=== PATIENT | male | born 1945 | race Hispanic/Latino ===

== ENCOUNTER 2018-02-28 19:45 | Inpatient (IN) | payer MEDICARE, MEDICAID ==
[2018-02-28] MEDS ORDERED: Nitroglycerin 2% Ointment 1 INCH/1 GM Packet ONE (20:15)
[2018-02-28] MEDS ORDERED: Potassium Chloride 20 MEQ TAB ONE (20:37)
[2018-02-28 21:15] LABS: Troponin I 0.054 ng/mL (< 0.028)
[2018-02-28] MEDS ORDERED: Furosemide 40 MG/4 ML VIAL ONE (21:18)
--- NOTE | 2018-02-28 22:11 | PDOC.FPRHP ---
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 Pain sometimes present at rest but is usually worse with exertion. He has had pain like this in the past, but not to the extent that he did with his prior heart attacks or before he had bypass. Pain is described as stabbing and pressure like pain. Patient is currently asymptomatic. He states that the pain was relieved with nitro patch and aspirin given in the ED. Patient denies diaphoresis, nausea, or shortness of breath associated with the chest pain. He has been fatigued over the course of the last few days. Patient denies orthopnea and PND. He was taken off of aspirin by his PCP recently due to liver cirrhosis. ED Course: Lasix 40 mg IV, Nitro paste 1 inch, NS 500 ml, Kdur 20 meq, ASA 324 mg - Allergies/Adverse Reactions Allergies Allergy/AdvReac Type Severity Reaction Status Date / Time No Known Allergies Allergy Verified 03/01/18 01:03 - Home Medications Medication Instructions Recorded Confirmed Type ALPRAZolam [Xanax] 0.25 mg PO BID 01/15/14 03/01/18 History Furosemide [Lasix] 40 mg PO BID 01/15/14 03/01/18 History Insulin NPH/Reg Insulin Hm 31 unit SC BID-AC 01/15/14 03/01/18 History [HumuLIN 70/30 Vial] Metoprolol Tartrate [Lopressor] 50 mg PO BID 01/15/14 03/01/18 History Simvastatin [Zocor] 20 mg PO HS 01/15/14 03/01/18 History Amlodipine [Norvasc] 10 mg PO DAILY 03/01/18 03/01/18 History Finasteride 5 mg PO DAILY 03/01/18 03/01/18 History Lactulose [Constulose] 10 gm PO DAILY 03/01/18 03/01/18 History Omeprazole 20 mg PO DAILY 03/01/18 03/01/18 History Comments: List above was from 4 years ago, and he is not sure what needs up dating. He knows that he takes about 30 units of insulin BID, htn medication, statin, and lactulose. - History PMHx: CAD s/p stents and bypass in 1995 DM2- insulin dependent for at least 5 years hx of hepatitis C- is currently being treated hx of cirrhosis chronic anemia- he used to need blood and platelet transfusions with last transfusion over 5 years ago previous stroke- 2000 with left sided weakness in isolated muscle groups PSHx: CABG Bilateral Aortofemoral bypass surgery- 2004 Cholecystectomy- 2006 Appendectomy FHx:Positive for alcoholism, anemia, arthritis, diabetes, htn, hld, migraines Social: Former smoker, stopped in 1985 with 50 pk yr hx, stopped drinking in 1991 but was a heavy drinker. previous drug use. - Review of Systems General: reports: fatigue. denies: fever/chills, weight/appetite/sleep changes , night sweats Eyes: denies: eye pain, vision changes ENT: denies: nasal congestion, rhinorrhea Respiratory: reports: exercise intolerance. denies: cough, congestion, shortness of breath Cardiovascular: reports: chest pain, edema. denies: palpitation, paroxysmal nocturnal dyspnea, orthopnea Gastrointestinal: denies: nausea, vomiting, diarrhea, GI bleeding Genitourinary: denies: incontinence, dysuria, discharge Skin: denies: rashes, lesions Musculoskeletal: reports: tenderness. denies: pain - Vital signs BP: 153/64 HR: 60 RR: 14 Tmax: 98.5 Pox: 98% on room air Wt: 127 kg FMR H&P: Results - Labs Result Diagrams: 03/01/18 02:32 03/01/18 02:32 Lab results: B-Natriuretic Peptide 788.5 pg/mL (0-100) H 02/28/18 20:31 WBC: 3.2 HGB 11.7 HCT 35.2 plts 81 NA: 138 K 3.2 CL 108 CO2 21 BUN 17 Cr 1.45 glucose: 150 BNP 1007 Trop 0.054 AST: 94 ALT: 82 alk phos: 142 - EKG Interpretation EKG: Sinus bradycardia with LAD, non specific T wave changes inv V4-6, 1st degree AV block FMR H&P: A/P - Problem List (1) NSTEMI (non-ST elevated myocardial infarction) Current Visit: Yes Status: Acute Code(s): I21.4 - NON-ST ELEVATION (NSTEMI) MYOCARDIAL INFARCTION (2) CHF (congestive heart failure) Current Visit: Yes Status: Acute Code(s): I50.9 - HEART FAILURE, UNSPECIFIED (3) HTN (hypertension) Current Visit: Yes Status: Chronic Code(s): I10 - ESSENTIAL (PRIMARY) HYPERTENSION (4) HLD (hyperlipidemia) Current Visit: Yes Status: Chronic Code(s): E78.5 - HYPERLIPIDEMIA, UNSPECIFIED (5) CAD (coronary artery disease) Current Visit: Yes Status: Chronic Code(s): I25.10 - ATHSCL HEART DISEASE OF [place] CORONARY ARTERY W/O ANG PCTRS (6) Hepatitis C Current Visit: Yes Status: Chronic Code(s): B19.20 - UNSPECIFIED VIRAL HEPATITIS C WITHOUT HEPATIC COMA (7) Cirrhosis of liver Current Visit: Yes Status: Chronic Code(s): K74.60 - UNSPECIFIED CIRRHOSIS OF LIVER - Plan 1. 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 Suspected CHF - New onset lower extremity swelling. No PND, exertional dyspnea, or orthopnea - No prior diagnosis of CHF - Echo pending to confirm diagnosis - BNP 1000 on admission - Given lasix 40 mg IV in ED - Cardiology consult in AM - Cardiomegaly on CXR 3. CAD s/p CABG - Recently taken off of ASA due to cirrhosis - Continue home medications - Control comorbid conditions 4. Cirrhosis of liver - Monitor coags and platelets - Continue home lactulose - No evidence of ascites at this time 5. DM type II - Patient is at least on 25 units bid of insulin. Will start similar regimen here with SSI. - HgA1c and FLP pending 6. Chronic Anemia - Likely secondary to liver disease - Improved from 2014 and no need for transfusion within last 5 years 7. 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 - Will trend and discuss with PCP - Avoid nephrotoxic agents 8. HTN - Continue home medications 9. HLD - Continue home medications 10. Hypokalemia - Replace potassium 11. Elevated LFT's - Likely 2/2 hep C Disposition/LOS: Dispo: Admit to telemetry. Plan for cardiology consult in AM. Anticipate stay of >2 days. FMR H&P: Upper Level - Pertinent history 72 yo male with DM, CAD, s/p CABG, hep C cirrhosis presents with chest pain for three days that was worsening today. He denied NV, sweating or SOB. But it does get worse with exertion and he has felt very fatigued. He has noticed swelling in his legs recently. He denies orthopnea and PND. - Pertinent findings Gen: WD/WN in no acute distress HEENT: NC/AT, PARRIS,EOMI, MMM Resp: CTA, normal work of breathing CV: RRR, normal S1, S2, no murmur ABD: mild distension but still soft, nontender, no fluid wave. Extremities: 2+ pitting edema bilaterally in lower leg, pulses 2+ Psych: calm, normal affect and mood Neuro: strength, sensation normal. DTR 2+ Trop 0.06 0.05 Platlets 81 BNP 1000 - Plan Date/Time: 02/28/182208 IElma, have evaluated this patient and agree with findings/plan as outlined by technical support intern resident. Pertinent changes/additions are listed here. 1.NSTEMI- Patients pain is resolved but his CP and fatigue are cw NSTEMI and he had elevated troponins in a patient with complex cardiac hx. No recent echo or cath. Will trend trops, treat symptoms with nitro and consult cards in AM. Will hold LMW or regular heparin because of low platelets 2.Suspected CHF- will confirm with echo tomorrow 3.Cirrhosis- will monitor coags and platelets. Continue home lactulose 4.DM- patient is at least on 25 units bid of insulin. Will start similar regemin here with SSI. Will get a1 c in the AM 5.Chronic Anemia- likely secondary to liver disease. 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 Will trend and discuss with PCP Attending Addendum - Attending Addendum Date/Time: 03/01/182137 I personally evaluated the patient and discussed the management with Dr. Oneal in the evening of 02/28/18. I agree with the History, Examination, Assessment and Plan documented above with any addition or exceptions noted below.
[2018-02-28] MEDS ORDERED: Acetaminophen 325 MG TAB PO PRN (23:35)
[2018-02-28] MEDS ORDERED: Dextrose 5% in Water 1,000 ML IV PRN (23:40)
[2018-02-28] MEDS ORDERED: Dextrose 50% Abboject 50 ML SYRINGE SLOW IVP PRN (23:40)
[2018-03-01 00:12] LABS: Troponin I 0.056 ng/mL (< 0.028)
[2018-03-01 00:17] LABS: INR-International Normal Ratio 1.2; PTT 33.3 SEC (22.9-36.1); Prothrombin Time 15.1 SEC (12.0-14.7)
[2018-03-01 00:19] LABS: Magnesium 1.7 mg/dL (1.6-2.6); Phosphorus 2.6 mg/dL (2.3-4.7)
[2018-03-01 02:46] LABS: Hemoglobin 11.2 g/dL (14.0-18.0); Mean Corpuscular HGB CONC 33.5 g/dL (32.0-36.0); Mean Corpuscular Hemoglobin 28.6 pg (27.0-31.0); Mean Corpuscular Volume 85.4 fl (80.0-94.0); Mean Platelet Volume 9.7 fL (7.4-10.4); Platelet Count 67 thou/uL (130-400); RBC Distribution Width 13.4 % (11.5-14.5); Red Blood Cell (RBC) Count 3.91 mill/uL (4.70-6.10); White Blood Cell (WBC) Count 2.5 thou/uL (4.8-10.8)
[2018-03-01 03:12] LABS: Troponin I 0.057 ng/mL (< 0.028)
[2018-03-01 03:14] LABS: ALT (SGPT) 70 U/L (8-55); AST (SGOT) 77 U/L (5-34); Albumin 2.7 g/dL (3.4-4.8); Alkaline Phosphatase 141 U/L (40-150); Anion Gap 9 mmol/L (10-20); BUN (Urea Nitrogen) 17 mg/dL (8.4-25.7); Bilirubin, Total 0.5 mg/dL (0.2-1.2); Calc. Creatinine Clearance 56 mL/min (70-130); Carbon Dioxide 24 mmol/L (23-31); Cardiac Risk 3.9 (Less than 4.5); Chloride 109 mmol/L (98-107); Cholesterol 78 mg/dl (< 200 Desired); Estimated GFR-MDRD 47; Globulin 3.7 g/dL (2.4-3.5); Glucose 219 mg/dL (83-110); HDL Cholesterol 20 mg/dL (>60 Neg Risk); LDL Cholesterol, Calculated 29 mg/dL; Potassium 3.2 mmol/L (3.5-5.1); Protein, Total 6.4 g/dL (5.8-8.1); Sodium 139 mmol/L (136-145); Triglycerides 146 mg/dL (Less than 150)
[2018-03-01 03:19] LABS: Eosinophils 9 % (0-10); Lymphocytes 24 % (21-51); MDiff Complete? YES; Monocytes 10 % (0-10); Neutrophil 57 % (42-75); PLT Morphology Comment Appears Decreased
[2018-03-01] MEDS ORDERED: Insulin NPH/Reg Insulin Hm 300 UNITS/3 ML VIAL SC SCH (09:00)
--- NOTE | 2018-03-01 09:17 | PDOC.FM ---
- Subjective Subjective: DEMETRIA overnight, VSS. Denies any recurrence of chest pain. States LE swelling better. - Objective MAR Reviewed: Yes Vital Signs & Weight: Vital Signs (12 hours) Temp Pulse Resp BP Pulse Ox 03/01/18 07:40 97.9 F 65 16 169/76 H 96 03/01/18 04:00 97.8 F 63 18 159/73 H 94 L 03/01/18 00:15 95 03/01/18 00:00 97.4 F L 54 L 17 162/74 H 95 02/28/18 22:50 97.9 F 58 L 14 171/76 H 96 Weight Weight 86.228 kg I&O: 02/28/18 03/01/18 03/02/18 06:59 06:59 06:59 Intake Total 240 Output Total 700 Balance -460 Result Diagrams: 03/02/18 04:06 03/02/18 04:06 Phys Exam - Physical Examination Constitutional: NAD HEENT: PERRLA, moist MMs Respiratory: no wheezing, clear to auscultation bilateral Cardiovascular: RRR, no significant murmur Gastrointestinal: soft, non-tender, positive bowel sounds 1+ to mid khan b/l R>L Neurological: non-focal, moves all 4 limbs Psychiatric: A&O x 3 Skin: cap refill <2 seconds Dx/Plan (1) Unstable angina Status: Acute Plan: 4 day hx of substernal chest pressure worse w/ exertion and lasting longer than 20 minutes s/p resting Last cath back in 1995 Not taking statin 2/2 liver disease which was recently stopped by PCP CP resolved s/p nitro given in ER No evidence of ST-segment elevation on EKG and trop peak at 0.061 which have since downtrended ECHO this AM Cards consulted pending reccomendations. (2) Hypokalemia Code(s): E87.6 - HYPOKALEMIA Status: Acute (3) CHF (congestive heart failure) Code(s): I50.9 - HEART FAILURE, UNSPECIFIED Status: Acute (4) CAD (coronary artery disease) Code(s): I25.10 - ATHSCL HEART DISEASE OF [place] CORONARY ARTERY W/O ANG PCTRS Status: Chronic (5) HLD (hyperlipidemia) Code(s): E78.5 - HYPERLIPIDEMIA, UNSPECIFIED Status: Chronic (6) HTN (hypertension) Code(s): I10 - ESSENTIAL (PRIMARY) HYPERTENSION Status: Chronic (7) Hepatitis C Code(s): B19.20 - UNSPECIFIED VIRAL HEPATITIS C WITHOUT HEPATIC COMA Status: Chronic
--- NOTE | 2018-03-01 10:49 | ULT ---
RIGHT UPPER QUADRANT ULTRASOUND: DATE: Provided Clinical History: Cirrhosis. FINDINGS: The liver demonstrates a coarsened echotexture without evidence of mass or intrahepatic biliary ducta l dilatation. The IVC appears normal. The pancreas is largely obscured. The common duct is not dilate d. The gallbladder is not visualized compatible with provided clinical history of prior cholecystecto my. Right kidney demonstrates no evidence for hydronephrosis or mass. There is free fluid seen about the right hepatic lobe. IMPRESSION: 1. Coarsening of the hepatic echotexture compatible with the provided clinical history of cirrhosis. 2. Small amount of ascites is seen in the right upper quadrant. 3. Right pleural effusion is partially visualized. POS: [facility]
--- NOTE | 2018-03-01 11:52 | PDOC.FM ---
- Subjective Subjective: DEMETRIA overnight, VSS. No return of Chest pain. No new complaints. - Objective MAR Reviewed: Yes Vital Signs & Weight: Vital Signs (12 hours) Temp Pulse Resp BP Pulse Ox 03/01/18 07:40 97.9 F 65 16 169/76 H 96 03/01/18 04:00 97.8 F 63 18 159/73 H 94 L 03/01/18 00:15 95 03/01/18 00:00 97.4 F L 54 L 17 162/74 H 95 Weight Weight 86.228 kg I&O: 02/28/18 03/01/18 03/02/18 06:59 06:59 06:59 Intake Total 240 Output Total 700 Balance -460 Result Diagrams: 03/01/18 02:32 03/01/18 02:32 Phys Exam - Physical Examination Constitutional: NAD HEENT: PERRLA, moist MMs Neck: no nodes, no JVD Respiratory: no wheezing, clear to auscultation bilateral Cardiovascular: RRR, no significant murmur Gastrointestinal: soft, non-tender Musculoskeletal: edema present 1+ to mid khan b/l Neurological: moves all 4 limbs Dx/Plan (1) Unstable angina Status: Acute Plan: 4 day hx of substernal chest pressure worse w/ exertion and lasting longer than 20 minutes s/p resting Last cath back in 1995 Not taking statin 2/2 liver disease which was recently stopped by PCP CP resolved s/p nitro given in ER No evidence of ST-segment elevation on EKG and trop peak at 0.061 which have since downtrended ECHO this AM Cards consulted pending reccomendations. (2) Hypokalemia Code(s): E87.6 - HYPOKALEMIA Status: Acute Plan: Replace w/ PO (3) CHF (congestive heart failure) Code(s): I50.9 - HEART FAILURE, UNSPECIFIED Status: Acute Plan: Awaiting echo results Cards recs pending (4) CAD (coronary artery disease) Code(s): I25.10 - ATHSCL HEART DISEASE OF [place] CORONARY ARTERY W/O ANG PCTRS Status: Chronic Plan: Cont. asa Contraindication for lipitor and beta sarah in setting of active liver disease and possible new onset heart failure (5) HLD (hyperlipidemia) Code(s): E78.5 - HYPERLIPIDEMIA, UNSPECIFIED Status: Chronic Plan: Contraindication for statin 2/2 liver disease (6) HTN (hypertension) Code(s): I10 - ESSENTIAL (PRIMARY) HYPERTENSION Status: Chronic Plan: PRN's available Pending cards recs (7) Hepatitis C Code(s): B19.20 - UNSPECIFIED VIRAL HEPATITIS C WITHOUT HEPATIC COMA Status: Chronic Plan: RUQ U/S Will contact clinic to clarify if this is being treated or not
[2018-03-01] MEDS ORDERED: Potassium Chloride 20 MEQ TAB PO SCH (12:15)
--- NOTE | 2018-03-01 13:00 | ULT ---
BILATERAL LOWER EXTREMITY ARTERIAL DUPLEX EXAM: History: Leg pain, claudication symptoms. FINDINGS: Examination quality was limited as the patient had difficulty holding still. RIGHT: Common femoral artery 122 cm/sec Profunda femoral 55 cm/sec Proximal superficial femoral 95 cm/sec Mid 129 cm/sec Distal 139 cm/sec Popliteal 61 cm/sec Anterior tibial 44 cm/sec Posterior tibial 77 cm/sec Dorsalis pedis 31 cm/sec LEFT: Common femoral artery 195 cm/sec Profunda femoral 164 cm/sec Proximal superficial femoral 134 cm/sec Mid 158 cm/sec Distal 137 cm/sec Popliteal 92 cm/sec Anterior tibial 58 cm/sec Posterior tibial 76 cm/sec Dorsalis pedis 18 cm/sec IMPRESSION: 1. On the right side there is somewhat reduced velocities within the right profunda femoral artery as compared to the common femoral artery. This could indicate stenosis. There is also mildly elevated v elocities along the course of the mid to distal superficial femoral artery and a fairly significant d rop off of velocities at the popliteal artery level suggesting some areas of mild to moderate narrowi ng. 2. On the left side there is elevated velocities within the left common femoral artery suggesting pro ximal stenosis. There is also elevated velocities to the level of the distal superficial femoral nuris ry with a fairly significant drop off at the popliteal artery suggesting stenosis which could be mild to moderate at the level of the adductor canal. POS: [facility]
[2018-03-01] MEDS: hydrALAZINE 20 MG/ML VIAL SLOW IVP PRN (13:01)
--- NOTE | 2018-03-01 15:56 | CON ---
DATE OF CONSULTATION: 03/01/2018 CARDIOLOGY CONSULTATION REASON FOR CONSULTATION: Leg pain, peripheral vascular disease, chest pain, coronary artery disease. HISTORY OF PRESENT ILLNESS: Mr. Minh Prather is a 72-year-old gentleman. He initially was seen and evaluated by Dr. Haskins previously for peripheral vascular disease and had an intervention as melanie l be outlined below. The patient was admitted to the hospital on this occasion for the above listed problem. The patient states that his legs have been hurting off and on, mostly with exertion, but sometimes at rest. In addition to this, he had some chest pain yesterday. He describes it as a pressure sensati on in his chest. The patient states that he is feeling fine, now is pain free. PAST MEDICAL HISTORY: He said he had bypass surgery at [facility] in 1985. He said he had to be taken off aspirin several years ago secondary to gastrointestinal bleeding due to cirrhosis. The patient was also found to be in some degree of congestive heart failure in the emergency room yes terday. MEDICATIONS: At home, there are question delgado in all this, but it is: 1. Tamsulosin. 2. Clopidogrel. 3. Simvastatin. 4. Insulin. 5. Metoprolol. 6. Nexium. 7. Metformin. 8. Alprazolam. 9. Furosemide. ALLERGIES: None known. SOCIAL HISTORY: Former smoker, stopped in 1985; stopped drinking in 1991, previously heavy drinker. REVIEW OF SYSTEMS: Constitutional: No significant weight gain or loss. Vision: No changes. Heari ng: No changes. Pulmonary: No cough or wheezing. Positive for shortness of breath. Cardiac: Pos itive for chest pain. Gastrointestinal: No nausea, vomiting, or diarrhea. Skin: No rashes. Neuro logic: No unilateral weakness or numbness. Psychiatric: No unusual depression or anxiety. Hematol ogic: No unusual bruising. Genitourinary: No burning with urination. PHYSICAL EXAMINATION: GENERAL: This is a 72-year-old gentleman currently resting comfortably. VITAL SIGNS: His blood pressure 169/76, pulse 65 and regular. EYES: Sclerae nonicteric. Mouth: Mucous membranes are moist. NECK: Supple, no lymphadenopathy. LUNGS: Clear, no wheezing, rales or rhonchi. CARDIOVASCULAR: Normal S1, normal S2. There is no murmur, rub or gallop. ABDOMEN: Soft, nontender. EXTREMITIES: No clubbing or cyanosis. There is mild edema. SKIN: Warm and dry. PSYCHIATRIC: Mood and affect normal. NEUROLOGIC: Grossly normal. Femoral pulses are markedly diminished very hard to feel. Popliteal pu lses also difficult to feel, I do feel surprisingly posterior tibial pulses. EKG: Sinus bradycardia, first degree AV block, heart rate 56, no acute changes. PERTINENT LABORATORIES: Potassium is 3.2. Creatinine is 1.47. TSH is 6.1. AST is 77, ALT is 70, a nd LDL cholesterol is 78. Hemoglobin is 11.2; platelet count 67,000, severely depressed; white blood cell count 2.5; 57 neutrophils; 24 lymphocytes. INR is elevated at 1.2. ASSESSMENT: 1. Previous bypass surgery in 1985. 2. Recurrent chest pain. 3. Echocardiogram shows ejection fraction 50% to 55%, posterior wall akinetic inferior lateral wall hypokinetic. 4. History of cirrhosis with increase in INR. 5. Low platelet count, probably related to cirrhosis. 6. Peripheral vascular disease, status post intervention by Dr. Haskins on 06/18/2010, was noted t o have some groin pain after the procedure, but did not have a pseudoaneurysm. He had a hematoma in the right groin. The patient had an atherectomy to 2.0 mm Diamondback crown. Subsequently, he underwent stent implantation at that time, had a 7 x [address] d in the left side. ASSESSMENT: 1. Congestive heart failure. 2. Renal failure, stage 3. 3. Cirrhosis with increased INR. 4. History of gastrointestinal bleeding. 5. Peripheral vascular disease. 6. Low platelet count. 7. Low white blood cell count. PLAN: 1. We will evaluate peripheral vascular status. 2. Recheck blood counts tomorrow. Certainly, he is not a candidate for reoperation. A suboptimal c andidate for percutaneous intervention in view of the low platelet counts. We will reevaluate periph eral status and check the patient tomorrow. Consideration for stress testing will be given if it loo ks like it is suboptimal candidate for intervention.
[2018-03-01] MEDS: Insulin NPH/Reg Insulin Hm 300 UNITS/3 ML VIAL SC SCH (17:46)
[2018-03-01] MEDS: HumaLOG 300 UNITS/3 ML VIAL SC PRN (17:46)
[2018-03-01] MEDS: Furosemide 40 MG TAB PO SCH (20:30)
[2018-03-01] MEDS ORDERED: ALPRAZolam 0.25 MG TAB PO SCH (21:00)
[2018-03-01] MEDS ORDERED: Simvastatin 20 MG TAB PO SCH (21:00)
[2018-03-01] MEDS: Melatonin 3 MG TAB PO PRN (22:29)
[2018-03-02] MEDS: hydrALAZINE 20 MG/ML VIAL SLOW IVP PRN (00:55)
[2018-03-02 05:28] LABS: #Eosinphils 0.2 thou/uL (0.0-0.7); #Lymphocytes 0.9 thou/uL (1.20-3.40); #Monocytes 0.3 thou/uL (0.11-0.59); #Neutrophils 2.1 thou/uL (1.40-6.50); %Basophils 0.3 % (0.0-1.0); %Eosinophils 5.8 % (0.0-10.0); %Lymphocytes 26.8 % (21.0-51.0); %Monocytes 7.9 % (0.0-10.0); %Neutrophils 59.2 % (42.0-75.0); Hemoglobin 12.3 g/dL (14.0-18.0); Mean Corpuscular HGB CONC 33.4 g/dL (32.0-36.0); Mean Corpuscular Hemoglobin 28.6 pg (27.0-31.0); Mean Corpuscular Volume 85.6 fl (80.0-94.0); Mean Platelet Volume 10.5 fL (7.4-10.4); Platelet Count 82 thou/uL (130-400); RBC Distribution Width 13.6 % (11.5-14.5); Red Blood Cell (RBC) Count 4.31 mill/uL (4.70-6.10); White Blood Cell (WBC) Count 3.5 thou/uL (4.8-10.8)
[2018-03-02 05:40] LABS: Anion Gap 10 mmol/L (10-20); BUN (Urea Nitrogen) 16 mg/dL (8.4-25.7); Calc. Creatinine Clearance 61 mL/min (70-130); Calcium 8.9 mg/dL (7.8-10.44); Carbon Dioxide 23 mmol/L (23-31); Chloride 110 mmol/L (98-107); Estimated GFR-MDRD 52; Glucose 93 mg/dL (83-110); Potassium 3.7 mmol/L (3.5-5.1); Sodium 139 mmol/L (136-145)
[2018-03-02] MEDS ORDERED: Carvedilol 3.125 MG TAB PO SCH (08:45)
--- NOTE | 2018-03-02 08:46 | PDOC.FM ---
- Subjective Subjective: DEMETRIA overnight, hypertensive. NSR on tele. No new complaints. Denies any return of chest pain. - Objective Vital Signs & Weight: Vital Signs (12 hours) Temp Pulse Resp BP BP BP Pulse Ox 03/02/18 08:00 98.2 F 70 16 169/77 H 97 03/02/18 04:00 98.9 F 56 L 20 161/74 H 97 03/02/18 00:55 65 180/84 H 03/02/18 00:00 180/84 H Weight Weight 83.779 kg I&O: 03/01/18 03/02/18 03/03/18 06:59 06:59 06:59 Intake Total 240 920 Output Total 700 1725 Balance -460 -805 Result Diagrams: 03/02/18 04:06 03/02/18 04:06 <Pio Giraldo - Last Filed: 03/02/18 08:44> - Objective Vital Signs & Weight: Vital Signs (12 hours) Temp Pulse Resp BP BP BP Pulse Ox 03/02/18 08:00 98.2 F 70 16 169/77 H 97 03/02/18 04:00 98.9 F 56 L 20 161/74 H 97 03/02/18 00:55 65 180/84 H 03/02/18 00:00 180/84 H Weight Weight 83.779 kg I&O: 03/01/18 03/02/18 03/03/18 06:59 06:59 06:59 Intake Total 240 920 Output Total 700 1725 Balance -460 -805 Result Diagrams: 03/02/18 04:06 03/02/18 04:06 <Richard Miranda - Last Filed: 03/02/18 10:09> Phys Exam - Physical Examination Constitutional: NAD HEENT: PERRLA, moist MMs Neck: no nodes Respiratory: no wheezing, clear to auscultation bilateral Cardiovascular: RRR, no significant murmur Gastrointestinal: positive bowel sounds Neurological: moves all 4 limbs Psychiatric: normal affect, A&O x 3 Skin: cap refill <2 seconds <Pio Giraldo - Last Filed: 03/02/18 08:44> Dx/Plan (1) Unstable angina Status: Acute Plan: 4 day hx of substernal chest pressure worse w/ exertion and lasting longer than 20 minutes s/p resting Last cath back in 1995 Pt on low dose statin per PCP records which has been restarted Cont. w/ 81 mg ASA Will start low dose co-reg and SEBAS 2/2 HTN and improved pulse this AM No return of CP No evidence of ST-segment elevation on EKG and trop peak at 0.061 which have since downtrended Cards on board, appreciate recs. No plans for cath 2/2 comorbid medical conditions Cont. w/ medical management (2) CHF (congestive heart failure) Code(s): I50.9 - HEART FAILURE, UNSPECIFIED Status: Acute Plan: Restart low dose statin C/w ASA started low dose co-reg Started on low dose SEBAS (3) CAD (coronary artery disease) Code(s): I25.10 - ATHSCL HEART DISEASE OF [place] CORONARY ARTERY W/O ANG PCTRS Status: Chronic Plan: Cont. asa, statin Will start low dose co-reg today w/ continued resolution of chest pain Started on low dose SEBAS. GFR >30 not requiring dose adjustment (4) HLD (hyperlipidemia) Code(s): E78.5 - HYPERLIPIDEMIA, UNSPECIFIED Status: Chronic Plan: Contraindication for statin 2/2 liver disease (5) HTN (hypertension) Code(s): I10 - ESSENTIAL (PRIMARY) HYPERTENSION Status: Chronic Plan: PRN's available Started on low dose co-reg and SEBAS this AM (6) Hepatitis C Code(s): B19.20 - UNSPECIFIED VIRAL HEPATITIS C WITHOUT HEPATIC COMA Status: Chronic Plan: RUQ U/S showing cirrhosis <Pio Giraldo - Last Filed: 03/02/18 08:44> Attending Addendum - Attending Addendum Date/Time: 03/02/18 1006 I personally evaluated the patient and discussed the management with Dr. Giraldo I agree with the History, Examination, Assessment and Plan documented above with any addition or exceptions noted below. Patient's angina has stabilized. Due to his comorbidities we will not pursue catheterization, per Cardiology recommendations. Optimize medical management with possible discharge today. <Richard Miranda - Last Filed: 03/02/18 10:09>
[2018-03-02] MEDS ORDERED: Lisinopril 10 MG TAB PO SCH (09:00)
--- NOTE | 2018-03-02 09:51 | PRG ---
DATE OF SERVICE: 03/02/2018 SUBJECTIVE: Mr. Prather is doing okay, not having chest pain today. No pressure. PHYSICAL EXAMINATION: VITAL SIGNS: Blood pressure is high 169/77, pulse 70. LUNGS: Clear. CARDIAC: Normal S1, normal S2. Feeling his pulses, I feel a better femoral pulse today. The peripheral studies indicate that his va scular disease is probably distal. 1. Peripheral vascular disease. 2. Coronary artery disease with bypass in the 1980s x1 only. 3. Status post non-ST elevation infarction. 4. Cirrhosis. 5. History of gastrointestinal bleeding, had to be taken off aspirin and Plavix in the past apparent ly, but he is back on aspirin. PLAN: Discussed cardiac catheterization, that would be my recommendation to go ahead and proceed. D iscussed the risks, discussed increased bleeding risk in case he needs a stent and due to the dual an tiplatelet drugs. The patient declines catheterization at this point. If he changes his mind, we co uld proceed to catheterization. Otherwise, we will add nitrates and probably let him go home tomorro fariha
[2018-03-02] MEDS: Amlodipine 10 MG TAB PO SCH (10:19)
[2018-03-02] MEDS: Finasteride 5 MG TAB PO SCH (10:21)
[2018-03-02] MEDS: Furosemide 40 MG TAB PO SCH ×2 (10:21→20:36)
[2018-03-02] MEDS: Insulin NPH/Reg Insulin Hm 300 UNITS/3 ML VIAL SC SCH ×2 (10:22→18:25)
[2018-03-02] MEDS: Melatonin 3 MG TAB PO PRN (21:35)
[2018-03-03 05:22] VITALS: BMI 30.2
[2018-03-03] MEDS ORDERED: Lisinopril 20 MG TAB PO SCH (06:28)
[2018-03-03] MEDS: Insulin NPH/Reg Insulin Hm 300 UNITS/3 ML VIAL SC SCH (08:26)
[2018-03-03] MEDS: Furosemide 40 MG TAB PO SCH (08:28)
[2018-03-03] MEDS: Finasteride 5 MG TAB PO SCH (08:28)
[2018-03-03] MEDS: Amlodipine 10 MG TAB PO SCH (08:28)
--- NOTE | 2018-03-03 08:55 | PDOC.FM ---
- Subjective Subjective: DEMETRIA overnight, VSS. NSR on telemetry. No return of chest pain. No new complaints this AM. Pt reports ambulating w/o issue yesterday around floor. - Objective MAR Reviewed: Yes Vital Signs & Weight: Vital Signs (12 hours) Temp Pulse Resp BP BP Pulse Ox 03/03/18 08:28 67 03/03/18 07:45 98.8 F 67 17 158/74 H 96 03/03/18 04:35 99.2 F 69 18 157/76 H 96 03/03/18 04:22 99.2 F 69 18 157/76 H 96 03/03/18 00:27 98.2 F 61 16 156/70 H 97 Weight Weight 85.003 kg I&O: 03/02/18 03/03/18 03/04/18 06:59 06:59 06:59 Intake Total 920 1200 Output Total 1725 650 Balance -805 550 Result Diagrams: 03/02/18 04:06 03/02/18 04:06 <Pio Giraldo - Last Filed: 03/03/18 08:53> - Objective Vital Signs & Weight: Vital Signs (12 hours) Temp Pulse Resp BP BP Pulse Ox 03/03/18 08:28 67 03/03/18 08:00 98.8 F 67 18 96 03/03/18 07:45 98.8 F 67 17 158/74 H 96 03/03/18 04:35 99.2 F 69 18 157/76 H 96 03/03/18 04:22 99.2 F 69 18 157/76 H 96 03/03/18 00:27 98.2 F 61 16 156/70 H 97 Weight Weight 85.003 kg I&O: 03/02/18 03/03/18 03/04/18 06:59 06:59 06:59 Intake Total 920 1200 Output Total 1725 650 Balance -805 550 Result Diagrams: 03/02/18 04:06 03/02/18 04:06 <Richard Miranda - Last Filed: 03/03/18 10:37> Phys Exam - Physical Examination Constitutional: NAD HEENT: PERRLA, moist MMs Respiratory: no wheezing, clear to auscultation bilateral Cardiovascular: RRR, no significant murmur Gastrointestinal: soft, non-tender, positive bowel sounds Musculoskeletal: no edema Neurological: non-focal, moves all 4 limbs Psychiatric: normal affect, A&O x 3 Skin: cap refill <2 seconds <Pio Giraldo - Last Filed: 03/03/18 08:53> Dx/Plan (1) Unstable angina Status: Acute Plan: 4 day hx of substernal chest pressure worse w/ exertion and lasting longer than 20 minutes s/p resting. CP has resolved. Last cath back in 1995 trop peak at 0.061 which have since downtrended Pt on low dose statin per PCP records which has been restarted Cont. w/ 81 mg ASA Pt tolerated co-reg and SEBAS started yesterday w/ HTN improved and stable pulse this AM Increased dose of SEBAS this AM for improved control of BP Cards on board, appreciate recs. No plans for cath 2/2 comorbid medical conditions Cont. w/ medical management Plan for d/c home today w/ outpatient follow-up (2) CHF (congestive heart failure) Code(s): I50.9 - HEART FAILURE, UNSPECIFIED Status: Acute Plan: C/w statin C/w ASA c/w co-reg c/w sebas-i Pt to follow-up w/ PCP and cards s/p discharge (3) CAD (coronary artery disease) Code(s): I25.10 - ATHSCL HEART DISEASE OF [place] CORONARY ARTERY W/O ANG PCTRS Status: Chronic Plan: Cont. asa, statin cont. co-reg today c/w SEBAS (4) HLD (hyperlipidemia) Code(s): E78.5 - HYPERLIPIDEMIA, UNSPECIFIED Status: Chronic Plan: c/w low dose statin in the setting of liver disease (5) HTN (hypertension) Code(s): I10 - ESSENTIAL (PRIMARY) HYPERTENSION Status: Chronic Plan: PRN's available c/w co-reg as pt was able to tolerate this Increased SEBAS-I this AM for improved control (6) Hepatitis C Code(s): B19.20 - UNSPECIFIED VIRAL HEPATITIS C WITHOUT HEPATIC COMA Status: Chronic Plan: RUQ U/S showing cirrhosis outpatient follow-up <Pio Giraldo - Last Filed: 03/03/18 08:53> Attending Addendum - Attending Addendum Date/Time: 03/03/18 1022 I personally evaluated the patient and discussed the management with Dr. Giraldo I agree with the History, Examination, Assessment and Plan documented above with any addition or exceptions noted below. Patient tolerating Imdur, Lisinopril, and Coreg with improving blood pressures. Medical management has been optimized and he can likely be discharged home today. <Richard Miranda - Last Filed: 03/03/18 10:37>
[2018-03-03 11:22] VITALS: BP 116/62; TEMP 98.4
[2018-03-03] MEDS ORDERED: Carvedilol 3.125 MG TAB PO SCH (12:00)
[2018-03-03] MEDS: HumaLOG 300 UNITS/3 ML VIAL SC PRN (12:17)
--- NOTE | 2018-03-04 01:33 | DIS-2 ---
DATE OF ADMISSION: 02/28/2018 DATE OF DISCHARGE: 03/03/2018 ADMITTING ATTENDING: Dr. Dobbs. DISCHARGE ATTENDING: Dr. Miranda. RESIDENT: Dr. Pio Giraldo. CONSULTATIONS: Cardiology, Dr. Lopez. PROCEDURES: None. Echocardiogram showing EF of 50-55% with moderate mitral regurgitation and PA systolic pressure of 46 mmHg, moderately severely elevated and posterior wall akinesis and inferior wall and lateral wall hy pokinesis and severe left atrial dilatation. PRIMARY DIAGNOSES: 1. Unstable angina. 2. Congestive heart failure exacerbation. SECONDARY DIAGNOSES: 1. Coronary artery disease status post coronary artery bypass graft. 2. Liver cirrhosis. 3. Type 2 diabetes mellitus. 4. History of hepatitis C. 5. Chronic anemia. 6. Chronic kidney disease. 7. Hypertension. 8. Hyperlipidemia. DISCHARGE MEDICATIONS: 1. Aspirin 81 mg p.o. daily. 2. Imdur 60 mg p.o. daily. 3. Coreg 3.125 mg p.o. b.i.d. 4. Lisinopril 10 mg p.o. daily. 5. Lasix 40 mg p.o. b.i.d. 6. Xanax 0.25 mg p.o. b.i.d. 7. Humulin 70/30 31 units subcutaneous b.i.d. 8. Zocor 20 mg p.o. at bedtime. 9. Omeprazole 20 mg p.o. daily. 10. Finasteride 5 mg p.o. daily. 11. Norvasc 10 mg p.o. daily. 12. Lactulose 10 mg p.o. daily. DISCONTINUED MEDICATIONS: Lopressor 50 mg p.o. b.i.d. HISTORY OF PRESENT ILLNESS AND HOSPITAL COURSE: The patient is a 72-year-old male with past medical history of coronary disease, status post CABG, liver cirrhosis secondary to hepatitis C and hypertens ion who presented initially with 3-day history of worsening lower extremities and chest pain that was intermittent in nature. The patient also endorsing lower extremity swelling as well during this mary e frame. The patient states he has had similar pain in the past, but nothing to that extent. The pa tient described as stabbing and pressure-like. However, pain had resolved at time of initial evaluat ion. Initial EKG showed sinus bradycardia with nonspecific T-wave changes in the lateral leads in V4 through V6 with first degree AV block and this remained stable throughout entire hospitalization and continue telemetry. The patient had initial BNP of 1007. Initial troponin was 0.0454, which down t rended on subsequent checks. The patient was given 40 mg IV Lasix in the ER, which significantly imp roved his lower extremity swelling. He was admitted to telemetry and Cardiology was consulted for fu rther evaluation. Dr. Lopez, Cardiology evaluated the patient and secondary to his significant risk factors, did not feel he was a good candidate for cardiac catheterization. As he was not a candidat e for reoperation with history of coronary disease. The patient did also have low platelet counts th at were down to 67,000, which was around the patient's baseline from prior hospitalizations. The pat ient did have some elevated blood pressures on examination up to 180 systolic. He was started on med ical management with beta sarah, SEBAS inhibitor, and statin during his hospitalization. The patient reported that he had just been decreased to a low intensity statin with Zocor, which we continued. The patient's blood pressure responded well to the medication changes and with continued resolution o f his chest pain. He was discharged home with followup and with Cardiology outpatient setting. DISPOSITION: Stable. LOCATION: Home. FOLLOWUP: 1. Follow with Dr. Donato on 03/09/2018 at 4:00 p.m. 2. Follow with Dr. Carlyn Lopez in 2-3 weeks. 3. Activity: Cardiopulmonary limits. DIET: Heart healthy, diabetic and renal with 1500 mL fluid restriction.
== END 2018-03-03 14:28 | disposition home or self-care (01) | DRG 281 ==
LOC: ERS 19:45 → 2NO 20:34
PROVIDERS: ADMIT Family Medicine; ATTEND Family Medicine
DX: Z79.4 Long term (current) use of insulin; I73.9 Peripheral vascular disease, unspecified; I44.30 Unspecified atrioventricular block; I50.9 Heart failure, unspecified; E78.5 Hyperlipidemia, unspecified; Z79.82 Long term (current) use of aspirin; R00.1 Bradycardia, unspecified; N18.3 Chronic kidney disease, stage 3 (moderate); Z95.1 Presence of aortocoronary bypass graft; I13.0 Hypertensive heart and chronic kidney disease with heart failure and stage 1 through stage 4 chronic kidney disease, or unspecified chronic kidney disease; K74.60 Unspecified cirrhosis of liver; I34.0 Nonrheumatic mitral (valve) insufficiency; B18.2 Chronic viral hepatitis C; E11.22 Type 2 diabetes mellitus with diabetic chronic kidney disease; D64.9 Anemia, unspecified; Z87.891 Personal history of nicotine dependence; I21.A1 Myocardial infarction type 2; E87.6 Hypokalemia; I25.110 Atherosclerotic heart disease of native coronary artery with unstable angina pectoris
CPT/HCPCS: 36415; 36416; 76705; 80048; 80053; 80061; 83735; 83880; 84100; 84439; 84443; 84484; 85007; 85025; 85027; 85610; 85730; 93005; 93306; 93798; 93923; 96361; 96374; A4216; G8978-GP-CH; G8979-GP-CH; G8980-GP-CH; G8987-GO-CI; G8988-GO-CI; G8989-GO-CI; J0360; J1940

== ENCOUNTER 2018-08-04 14:30 | Inpatient (IN) | payer MEDICARE, MEDICAID ==
[2018-08-04] MEDS ORDERED: Furosemide 40 MG/4 ML VIAL ONE (15:40)
[2018-08-04 17:19] LABS: Troponin I 0.786 ng/mL (< 0.028)
[2018-08-04] MEDS ORDERED: Dextrose 50% Abboject 50 ML SYRINGE SLOW IVP PRN (18:18)
[2018-08-04] MEDS ORDERED: Nitroglycerin 0.4 MG TAB (25 Tab Bottle) SL PRN (18:18)
[2018-08-04] MEDS ORDERED: Dextrose 5% in Water 1,000 ML IV PRN (18:18)
[2018-08-04] MEDS ORDERED: Ondansetron ODT 4 MG TAB PO PRN (18:18)
[2018-08-04] MEDS ORDERED: Enoxaparin Sodium 40 MG/0.4 ML SYRINGE SC SCH (18:18)
[2018-08-04 18:21] VITALS: BMI 28.6
[2018-08-04] MEDS ORDERED: Heparin 25,000 units/D5W 500 ML IVPB SCH (19:15)
--- NOTE | 2018-08-04 19:34 | PDOC.FPRHP ---
- History of Present Illness Chief Complaint: Shortness of breath, Chest pain History of Present Illness: 72 year old male with history of CAD s/p CABG 1985, Hx of stent 2006, DM type II , HTN that presents with chest pain and shortness of breath. Patient states he has a one day history of chest pain, located in the center of the chest. It is described as dull and with no radiation. The chest pain is constant and associated with shortness of breath. Patient states this current episode of chest pain actually started with shortness of breath. He is exceptionally short of breath on exertion. He endorses palpitations. The chest pain started at around 14:00 today and was relieved by nitro, ASA, and lasix. He was transferred from [facility] for CHF exacerbation and workup of chest pain. 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 At that time, he was seen by Dr. Lopez. He had an echo done at that time which showed EF 50-55% with posterior wall akinesis, inferior wall and lateral wall hypokineses, and PA systolic pressure of [address] Lopez commented that patient would likely need cardiac catheterization, but patient declined at the time. Nitrates were added to assist with chest pain. Patient does have a history of GI bleeding, so he was taken off of ASA and plavix in the past, but was restarted during last hospitalization. Patient does endorse a history of smoking but quit in 2001. Of note, patient is requiring O2 in ED. He is satting mid 90's on 2L. He does not require O2 at home. ED Course: Patient given 40 mg of IV lasix in [facility]. He was transferred to [facility] from [facility] and had received ASA, Lasix, and Nitro. - Allergies/Adverse Reactions Allergies Allergy/AdvReac Type Severity Reaction Status Date / Time No Known Allergies Allergy Verified 07/26/18 12:36 - Home Medications Medication Instructions Recorded Confirmed Type ALPRAZolam [Xanax] 0.25 mg PO BID 01/15/14 08/05/18 History Furosemide [Lasix] 40 mg PO BID 01/15/14 08/05/18 History Insulin NPH/Reg Insulin Hm 28 unit SC BID-AC 01/15/14 08/05/18 History [HumuLIN 70/30 Vial] Simvastatin [Zocor] 20 mg PO HS 01/15/14 08/05/18 History Amlodipine [Norvasc] 10 mg PO DAILY 03/01/18 08/05/18 History Finasteride 5 mg PO DAILY 03/01/18 08/05/18 History Lactulose [Constulose] 10 gm PO DAILY 03/01/18 03/01/18 History Omeprazole 20 mg PO DAILY 03/01/18 08/05/18 History Aspirin [Aspirin Chewable Tablet] 81 mg PO DAILY tab 03/03/18 08/05/18 Rx Carvedilol [Coreg] 3.125 mg PO BID #60 tab 03/03/18 08/05/18 Rx Isosorbide Mononitrate [Imdur] 60 mg PO DAILY #30 tab 03/03/18 Rx Lisinopril 10 mg PO DAILY #30 tablet 03/03/18 08/05/18 Rx - History PMHx: HFpEF, CAD s/p CABG 1985 and stent 2006, DM type II, HTN, Cirrhosis, GERD , Hepatitis C, HLD, CVA with residual left sided weakness PSHx: CABG 1985, Stent 2006, Cholecystectomy, Appendectomy FHx: Mom and dad with history of [place], DM type II. Brother with CHF. Social: Endorses past history of tobacco abuse. Quit in 's per patient. Smoke for 20-30 years. Patient endorses history of drug use to include cocaine, heroin , and marijuana. Endorses significant EtOH abuse in the past. He states that he quit drinking in 2001 but prior to that drank 24 pack per day. - Review of Systems General: denies: fever/chills, weight/appetite/sleep changes Eyes: reports: vision changes (due to cataracts. recent repair of left eye. due for repair of right eye tomorrow) ENT: denies: nasal congestion Respiratory: reports: cough (prior to shortness of breath and chest pain), shortness of breath, exercise intolerance. denies: congestion Cardiovascular: reports: chest pain, palpitation, edema, paroxysmal nocturnal dyspnea, orthopnea Gastrointestinal: reports: constipation, GI bleeding (hx of GI bleed in past). denies: nausea, vomiting, diarrhea, abdominal pain Genitourinary: denies: incontinence, polyuria Skin: denies: rashes, lesions Musculoskeletal: denies: pain, tenderness, arthritis/arthralgias Neurological: denies: numbness, syncope, seizure, weakness Psychological: denies: anxiety, depression - Vital signs BP: 159/80 HR: 37 RR: 26 Tmax: 97.9 F Pox: 94% on 2L Wt: 82 kg - Physical Exam Constitutional: awake, alert and oriented, well developed -Constitutional: Working to breath, but conversating without much difficulty HEENT: PERRLA, EOMI Neck: supple Chest: no-tender to palpation -Heart: Irregular rhythm, bradycardia -Lungs: Wheezing present throughout, no rales or rhonchi noted Abdomen: soft, non-tender, bowel sounds present -Abdomen: Mildly distended Skin: no rash/lesions, capillary refill <2 seconds Heme/Lymphatic: no unusual bruising or bleeding Psychiatric: normal mood and affect, good judgment and insight, intact recent and remote memory FMR H&P: Results - Labs Result Diagrams: 08/05/18 01:03 08/05/18 01:03 - EKG Interpretation EKG: Irregular sinus rhythm. P waves noted on EKG. NJ interval seems to vary. Bradycardia in the 40's. - Radiology Interpretation Chest x-ray Status: image reviewed by me, report reviewed by me Additional comment: No evidence of acute cardiopulmonary process. FMR H&P: A/P - Problem List (1) NSTEMI (non-ST elevated myocardial infarction) Current Visit: No Status: Acute Code(s): I21.4 - NON-ST ELEVATION (NSTEMI) MYOCARDIAL INFARCTION (2) Acute on chronic diastolic CHF (congestive heart failure) Current Visit: Yes Status: Acute Code(s): I50.33 - ACUTE ON CHRONIC DIASTOLIC (CONGESTIVE) HEART FAILURE (3) Cirrhosis of liver Current Visit: No Status: Chronic Code(s): K74.60 - UNSPECIFIED CIRRHOSIS OF LIVER (4) HLD (hyperlipidemia) Current Visit: Yes Status: Chronic Code(s): E78.5 - HYPERLIPIDEMIA, UNSPECIFIED (5) HTN (hypertension) Current Visit: Yes Status: Chronic Code(s): I10 - ESSENTIAL (PRIMARY) HYPERTENSION (6) Hepatitis C Current Visit: No Status: Chronic Code(s): B19.20 - UNSPECIFIED VIRAL HEPATITIS C WITHOUT HEPATIC COMA (7) Acute bronchitis Current Visit: Yes Status: Acute Code(s): J20.9 - ACUTE BRONCHITIS, UNSPECIFIED - Plan 72 year old male with history of CAD s/p CABG 1985, stent in 2006, HTN, DM type II that presents with shortness of breath and chest pain. 1. NSTEMI - Troponin 0.474 --> 0.786 --> 0.998 (highest previously 0.061) - Trend Troponin - Patient currently without chest pain, but short of breath - Dr. Kuhn called regarding NSTEMI. Suggested that if patient not actively having chest pain to make NPO after midnight and to call Dr. Lopez in AM since he saw him during last hospitalization. - Patient seen 02/2018; He had an echo done at that time which showed EF 50-55% with posterior wall akinesis, inferior wall and lateral wall hypokineses, and PA systolic pressure of [address] Lopez suggested cardiac catheterization at the time, but patient declined. Patient agreeable to cardiac catheterization during this hospitalization. - Risk stratification labs performed during last hospitalization; HgA1c 6.1 in . TSH elevated at 6 during last hospitalization. FLP performed during last hospitalization. - Cardiology consulted: appreciate recs. Call Dr. Lopez in AM. He saw patient during last hospitalization. Will likely go for cath - NPO - Heparin gtt (therapeutic) - ASA, Nitro PRN - Continue home medications 2. Acute on chronic HFpEF - Echo 02/2018 showed above findings - Lasix BID IV - Repeat echo - Strict I&Os - Daily weight - Fluid restriction 1500 mL Acute hypoxic respiratory failure - Does not require O2 at baseline - 2L O2 requirement to maintain sats in mid 90's - Likely 2/2 HF exacerbation - Repeat echo - See plan as above - O2 to maintain sats >92% - D-dimer 0.40 3. Pulmonary HTN - PA systolic pressure 46 mmHg - Repeat echo - No history of COPD 4. HTN - Continue home medications - PRN for SBP >180 5. DM type II - Continue home medications - Mild SSI - ACHS accuchecks - HgA1c 6.1 in 04/2018 6. HLD - Continue home medications 7. Cirrhosis - Likely 2/2 alcohol abuse - LFTs elevated; continue to trend - Moderately distended abdomen; no history of needing paracentesis in the past 8. Thrombocytopenia - Likely 2/2 cirrhosis - platelets 105 (higher than normal); continue to trend 9. TERRENCE on CKD - BUN 37 with Cr 1.72, GFR 39. Baseline low 50's - Will likely improve with diuresis - Continue to monitor 10. CAD s/p CABG 1985 - Stent 2006 - See plan as above - Continue home medications 11. Acute bronchitis - Start duoneb treatments - Steroids qd - Monitor O2 DVT PPX: Heparin gtt GI PPX: Protonix Dispo: Stable, but guarded prognosis. Cardiology consulted. CE's continue to trend upwards, but patient without chest pain. Started on heparin drip. Possible cath in AM . FMR H&P: Upper Level - Plan Date/Time: 08/04/181925 I, [], have evaluated this patient and agree with findings/plan as outlined by management intern resident. Pertinent changes/additions are listed here. Attending Addendum - Attending Addendum Date/Time: 08/05/18 4322 I personally evaluated the patient and discussed the management with Dr. Guajardo on 08/04/2018. I agree with the History, Examination, Assessment and Plan documented above with any addition or exceptions noted below- Briefly this is a 89 yo male with h/o DM, HTN, CAD s/p CABG and stents, cirrhosis who presented with increasing SOB for the last 2 days. Has had some associated chest pain with the SOB. Denies any diaphoresis. (+) orthopnea. PMH/PSH/Meds/All reviewed and agree with resident's documentation. Afebrile VSS Exam repeated by me and agree with resident's findings. Labs: H/H=11.4/36.0, Tck=760, Fc=532, K=3.9, Qn=056, CO2=17 , BUN/Cr= 37/1.72, Gluc= 141, AST/TJZ=012/160, DKS=4489, Trop I=0.474. EKG- NSR , no ST changes. A/P: 1) CHF exacerbation- admit to tele for diuresis; follow cardiac enzymes. Will consult cardiology for further assistance. 2) DM- monitor accuchecks; continue home meds, 3) Transaminitis- pssibly secondary to hepatic congestion versus cirrhosis or combination- continue to monitor.
[2018-08-04 19:43] LABS: Hemoglobin 12.6 g/dL (14.0-18.0); Platelet Count 113 thou/uL (130-400)
[2018-08-04 19:59] LABS: CKMB 10.5 ng/mL (0-6.6); Troponin I 0.998 ng/mL (< 0.028)
[2018-08-04] MEDS: Heparin 10,000 UNITS/ 10 ML VIAL SLOW IVP SCH (20:41)
[2018-08-04] MEDS ORDERED: hydrALAZINE 20 MG/ML VIAL SLOW IVP PRN (20:41)
--- NOTE | 2018-08-04 21:43 | PDOC.EVN ---
Event Note - Event Note Event Note: Evaluated patient with Dr. Godinez. He was breathing about 25-30 times perminute. Expiratory wheeze noted with cough. No rales notes at bases, diminished airflow at bases. O2 sats on A were low 80s. With neb treatment improved to mid 90s. Will transfer to [facility] for BPAP theapy, sart steroids, give oxygen, and nebs. Main problems are nstemi, CHF, and acute bronchitis.
[2018-08-04 22:42] LABS: CKMB 7.9 ng/mL (0-6.6); Troponin I 1.086 ng/mL (< 0.028)
[2018-08-05 01:24] LABS: Troponin I 1.439 ng/mL (< 0.028)
[2018-08-05 01:37] LABS: #Monocytes 0.3 thou/uL (0.11-0.59); #Neutrophils 4.5 thou/uL (1.40-6.50); %Basophils 0.5 % (0.0-1.0); %Eosinophils 0.8 % (0.0-10.0); %Lymphocytes 17.6 % (21.0-51.0); %Monocytes 5.2 % (0.0-10.0); Hemoglobin 11.5 g/dL (14.0-18.0); Mean Corpuscular HGB CONC 33.2 g/dL (32.0-36.0); Mean Corpuscular Hemoglobin 27.1 pg (27.0-31.0); Mean Corpuscular Volume 81.5 fL (78.0-98.0); Mean Platelet Volume 11.1 fL (7.4-10.4); Platelet Count 91 thou/uL (130-400); RBC Distribution Width 14.4 % (11.5-14.5); Red Blood Cell (RBC) Count 4.24 mill/uL (4.70-6.10)
[2018-08-05 01:56] LABS: ALT (SGPT) 146 U/L (8-55); AST (SGOT) 138 U/L (5-34); Albumin 2.9 g/dL (3.4-4.8); Alkaline Phosphatase 133 U/L (40-150); Anion Gap 14 mmol/L (10-20); BUN (Urea Nitrogen) 36 mg/dL (8.4-25.7); Bilirubin, Total 0.9 mg/dL (0.2-1.2); Calc. Creatinine Clearance 44 mL/min (70-130); Calcium 8.4 mg/dL (7.8-10.44); Carbon Dioxide 18 mmol/L (23-31); Chloride 109 mmol/L (98-107); Estimated GFR-MDRD 40; Globulin 4.3 g/dL (2.4-3.5); Glucose 153 mg/dL (83-110); Potassium 3.7 mmol/L (3.5-5.1); Protein, Total 7.2 g/dL (5.8-8.1); Sodium 137 mmol/L (136-145)
[2018-08-05 02:49] LABS: Amphetamine Not Detected (NotDetected); Barbiturates Screen Not Detected (NotDetected); Benzodiazepine Screen Detected (NotDetected); Cocaine Metabolite Screen Not Detected (NotDetected); Medtox Control Line Valid? VALID (VALID); Medtox Reader # READER 4; Methadone Not Detected (NotDetected); Methamphetamine Not Detected (NotDetected); Opiate Screen Not Detected (NotDetected); Oxycodone Screen Not Detected (NotDetected); Phencyclidine (PCP) Not Detected (NotDetected); THC/Cannabinoid Screen Not Detected (NotDetected); Tricyclic Screen Not Detected (NotDetected)
[2018-08-05 05:02] LABS: Critical Call Chem Troponin I RESULT DECREASING; Troponin I 1.231 ng/mL (< 0.028)
[2018-08-05] MEDS: Furosemide 40 MG/4 ML VIAL SLOW IVP SCH ×2 (05:27→13:36)
[2018-08-05] MEDS: Heparin 10,000 UNITS/ 10 ML VIAL SLOW IVP SCH (05:27)
--- NOTE | 2018-08-05 05:40 | PDOC.EVN ---
Event Note - Event Note Event Note: Mr. Prather has improved since transfer to [facility]. RR is now 18-20. O2 sats in the 90s on NC. NIPPV did not need to be started. Neb and steroids have been helpful. Nurse notes patient reports that pharmacy record show he is taking xanax twice day. We will address his anxiety.
--- NOTE | 2018-08-05 06:06 | PDOC.FM ---
- Subjective Subjective: Patient denies CP or SOB this morning. Reports he is hungry and feeling restless. He requests more of his home anxiety medication. - Objective MAR Reviewed: Yes Vital Signs & Weight: Vital Signs (12 hours) Temp Pulse Resp BP Pulse Ox 08/05/18 04:00 98.5 F 69 22 H 140/46 L 94 L 08/05/18 03:01 70 18 94 L 08/05/18 00:33 70 18 96 08/05/18 00:00 99.8 F H 69 18 146/58 H 95 08/04/18 22:20 98.1 F 73 24 H 162/68 H 94 L 08/04/18 21:08 73 32 H 08/04/18 18:18 96 Weight Weight 84.5 kg I&O: 08/03/18 08/04/18 08/05/18 06:59 06:59 06:59 Intake Total 360 Output Total 375 Balance -15 Result Diagrams: 08/05/18 01:03 08/05/18 01:03 <Dalia Denny - Last Filed: 08/05/18 12:12> - Objective Vital Signs & Weight: Vital Signs (12 hours) Temp Pulse Resp BP BP Pulse Ox 08/05/18 11:13 97.7 F 80 16 143/48 H 98 08/05/18 10:31 77 143/48 H 08/05/18 10:13 74 16 97 08/05/18 07:29 98.3 F 80 18 133/43 L 97 08/05/18 06:42 96 08/05/18 06:41 82 16 95 08/05/18 04:00 98.5 F 69 22 H 140/46 L 94 L 08/05/18 03:01 70 18 94 L Weight Weight 84.5 kg I&O: 08/04/18 08/05/18 08/06/18 06:59 06:59 06:59 Intake Total 360 Output Total 375 Balance -15 Result Diagrams: 08/05/18 01:03 08/05/18 01:03 <Nalini Herzog - Last Filed: 08/05/18 13:06> Phys Exam - Physical Examination Constitutional: NAD HEENT: moist MMs crackles in lower lobes, expiratory wheeze Cardiovascular: RRR, no significant murmur Gastrointestinal: soft, non-tender, no distention, positive bowel sounds Neurological: non-focal, moves all 4 limbs Psychiatric: normal affect Skin: cap refill <2 seconds <Dalia Denny - Last Filed: 08/05/18 12:12> Dx/Plan (1) Acute bronchitis Code(s): J20.9 - ACUTE BRONCHITIS, UNSPECIFIED Status: Acute (2) Acute on chronic diastolic CHF (congestive heart failure) Code(s): I50.33 - ACUTE ON CHRONIC DIASTOLIC (CONGESTIVE) HEART FAILURE Status : Acute (3) Anxiety Code(s): F41.9 - ANXIETY DISORDER, UNSPECIFIED Status: Acute (4) CAD (coronary artery disease) Code(s): I25.10 - ATHSCL HEART DISEASE OF [place] CORONARY ARTERY W/O ANG PCTRS Status: Chronic (5) HLD (hyperlipidemia) Code(s): E78.5 - HYPERLIPIDEMIA, UNSPECIFIED Status: Chronic (6) HTN (hypertension) Code(s): I10 - ESSENTIAL (PRIMARY) HYPERTENSION Status: Chronic (7) NSTEMI (non-ST elevated myocardial infarction) Code(s): I21.4 - NON-ST ELEVATION (NSTEMI) MYOCARDIAL INFARCTION Status: Acute - Plan Plan: 72 year old male with history of CAD s/p CABG 1985, stent in 2006, HTN, DM type II that presents with shortness of breath and chest pain. NSTEMI - Troponin trending down 1.4->1.2 - hx of CAD with CABG in 1985 and stent in 2006 - NPO - on telemetry - Cardiology, Dr. Lopez consulted. Appreciate recommendations - Heparin gtt discontinued. On lovenox 40 BID - ASA, Nitro PRN - Continue home medications Acute on chronic HFpEF - Echo 02/2018 EF 50-55% with posterior wall akinesis, inferior wall and lateral wall hypokineses, and PA systolic pressure of 46 mmHg. - Continue Lasix 40 BID IV - Repeat echo pending - Strict I&Os - Daily weight - Fluid restriction 1500 mL Acute hypoxic respiratory failure - Does not require O2 at baseline. No hx of COPD, though has hx of tobacco abuse. - on 2L NC this morning. Denies SOB, wheezing on exam. - Likely 2/2 CHF exacerbation vs component of acute bronchitis - Duonebs and PO steroids. CHF management as above. - O2 to maintain sats >92% TERRENCE on CKD - BUN 37 with Cr 1.72, GFR 39 on admission. Baseline low 50's. Cr 1.7 today. - Continue to monitor Thrombocytopenia - Likely 2/2 cirrhosis - platelets 91 this morning, lovenox not given DM type II - Continue home medications - Mild SSI - ACHS accuchecks - HgA1c 6.1 in 04/2018 Pulmonary HTN - Repeat echo HTN - Continue home medications - PRN for SBP >180 HLD - Continue home medications Cirrhosis - LFTs elevated; continue to trend - has history of Hepatitis C DVT PPX: Lovenox GI PPX: Protonix Dispo: Stable, but guarded prognosis. Cardiology consulted <Dalia Denny - Last Filed: 08/05/18 12:12> Attending Addendum - Attending Addendum Date/Time: 08/05/18 5742 I personally evaluated the patient and discussed the management with Dr. Denny. I agree with the History, Examination, Assessment and Plan documented above with any addition or exceptions noted below. The patient is here with nstemi and CHF exacerbation. Will continue lasix for diuresis. Cardiology has seen pt and is deciding on possible cath. Pt required bipap overnight but is now breathing comfortably nasal cannula. Heparin is changed ot lovenox. <Nalini Herzog - Last Filed: 08/05/18 13:06>
[2018-08-05] MEDS: ALPRAZolam 0.25 MG TAB PO SCH ×2 (06:16→21:28)
[2018-08-05] MEDS ORDERED: predniSONE 20 MG TAB PO SCH ×2 (08:00→13:00)
[2018-08-05] MEDS ORDERED: Carvedilol 3.125 MG TAB PO SCH (09:00)
[2018-08-05] MEDS ORDERED: Non-Formulary Item 1 EACH (Omeprazole [Omeprazole] 20 MG) PO SCH (09:00)
[2018-08-05] MEDS ORDERED: Lisinopril 10 MG TAB PO SCH (09:00)
[2018-08-05] MEDS: Amlodipine 10 MG TAB PO SCH (10:31)
[2018-08-05] MEDS: Finasteride 5 MG TAB PO SCH (10:32)
[2018-08-05] MEDS: Enoxaparin Sodium 40 MG/0.4 ML SYRINGE SC SCH ×4 (10:38→21:29)
[2018-08-05] MEDS: HumaLOG 300 UNITS/3 ML VIAL SC PRN ×3 (11:03→21:28)
--- NOTE | 2018-08-05 11:09 | CON ---
DATE OF CONSULTATION: 08/05/2018 REASON FOR CONSULTATION: Congestive heart failure, non-ST elevation myocardial infarction. HISTORY OF PRESENT ILLNESS: Mr. Minh Prather is a 72-year-old man. The patient was admitted to the hospital yesterday with difficulty breathing and chest pain. The patient states he has been having chest pain, just a short time, mostly the day prior to admission, but mostly had worsening shortness of breath. He was brought to the hospital. A chest x-ray showed congestive heart failure. Cardiac enzymes revealed a non-ST elevation infarction and I have been consulted. PAST MEDICAL HISTORY: 1. The patient has a history of peripheral vascular disease with peripheral intervention by Dr. Raheem mora in the past. 2. History of coronary bypass surgery x1 in 1985, unknown location, but it was done at [facility], i t was a vein graft. 3. Other past history; cirrhosis, had to go off aspirin in the past due to gastrointestinal bleeding . 4. History of congestive heart failure. MEDICATIONS AT THE TIME OF ADMISSION: 1. Furosemide 40 mg twice a day. 2. Insulin. 3. Simvastatin. 4. Amlodipine. 5. Aspirin 81 mg a day. 6. Carvedilol 3.125 mg twice daily. 7. Lisinopril 10 mg a day. ALLERGIES: None known. SOCIAL HISTORY: Denies tobacco, quit in 1985. FAMILY HISTORY: Negative for heart disease at a young age. PHYSICAL EXAMINATION: GENERAL: This is an elderly gentleman, looks older than his chronologic age. VITAL SIGNS: Blood pressure is 133/43, pulse 80, it is irregular now, respiratory rate is 22, somewh at elevated even when he is sleeping. HEENT: Eyes; sclerae nonicteric. Mouth mucous membranes moist. NECK: Supple, no lymphadenopathy. LUNGS: He has bibasilar rales. CARDIAC: It is usually regular with occasional premature beat. I do not hear a murmur, rub or aaron p. ABDOMEN: Soft, nontender, no hepatosplenomegaly. EXTREMITIES: Warm and dry. Peripheral pulses; the left femoral I do not feel, the left popliteal o r pedal pulses are absent. On the right the femoral pulse is present. I do feel popliteal pulse. T here is a bruit in the right femoral artery. PERTINENT LABORATORY: Platelet count is 91,000, which is chronically low. Liver tests are elevated with AST 138, ALT 146. This is the highest that they have been for some time, although they appear t o be chronically elevated. LDL cholesterol 29. The INR was slightly prolonged at 1.2, that was previously. I do see an INR on this admission. He h as PTTs are elevated. He is on heparin. The EKG showed some sinus bradycardia with premature atrial contractions. There are no acute changes . The patient's heart rate is 47, sinus christine with PACs. ASSESSMENT: 1. Congestive heart failure, previously diastolic, acute on chronic. 2. Coronary artery disease with bypass in 1985 x 1. He does have an incision in the left lower leg, looks like a vein graft harvest site. Most likely that graft is occluded. 3. Peripheral vascular disease, severe. 4. Low platelet count. 5. Cirrhosis. 6. Hepatitis. 7. History of hypertension. 8. Longstanding diabetes. 9. Likely has diffuse vascular disease. 10. Currently still decompensated from a heart failure standpoint. 11. Renal failure, stage 3, estimated glomerular filtration rate is 40. PLAN: 1. Continue diuretic. 2. We will change to enoxaparin reduced dose. 3. Echocardiogram. 4. Previously he declined catheterization. 5. Obviously, the patient's prognosis is guarded long-term with these multiple problems and likely d iffuse vascular disease. PLAN: 1. Continue intravenous furosemide. 2. Lisinopril. 3. Repeat echocardiogram. 4. He is on aspirin. 5. We will reevaluate this afternoon, decide whether to offer catheterization again. Any interventi on will certainly be high risk with these multiple comorbidities, but we will further discuss with jeanne rivera this afternoon. He is currently still in congestive heart failure.
[2018-08-05] MEDS: Acetaminophen 325 MG TAB PO PRN (14:02)
[2018-08-05] MEDS ORDERED: Enoxaparin Sodium 40 MG/0.4 ML SYRINGE SC SCH (21:00)
[2018-08-05] MEDS: Simvastatin 20 MG TAB PO SCH (21:28)
[2018-08-06] MEDS: Acetaminophen 325 MG TAB PO PRN (00:35)
[2018-08-06 03:57] LABS: #Lymphocytes 0.6 thou/uL (1.20-3.40); #Monocytes 0.3 thou/uL (0.11-0.59); #Neutrophils 8.6 thou/uL (1.40-6.50); %Basophils 0.2 % (0.0-1.0); %Lymphocytes 6.2 % (21.0-51.0); %Monocytes 3.5 % (0.0-10.0); %Neutrophils 90.1 % (42.0-75.0); Hemoglobin 10.1 g/dL (14.0-18.0); Mean Corpuscular Hemoglobin 27.7 pg (27.0-31.0); Mean Corpuscular Volume 81.4 fL (78.0-98.0); Mean Platelet Volume 11.7 fL (7.4-10.4); Platelet Count 89 thou/uL (130-400); RBC Distribution Width 14.6 % (11.5-14.5); Red Blood Cell (RBC) Count 3.66 mill/uL (4.70-6.10); White Blood Cell (WBC) Count 9.5 thou/uL (4.8-10.8)
[2018-08-06 04:14] LABS: Anion Gap 17 mmol/L (10-20); BUN (Urea Nitrogen) 59 mg/dL (8.4-25.7); Calc. Creatinine Clearance 34 mL/min (70-130); Calcium 8.5 mg/dL (7.8-10.44); Carbon Dioxide 15 mmol/L (23-31); Chloride 104 mmol/L (98-107); Estimated GFR-MDRD 28; Glucose 223 mg/dL (83-110); Potassium 3.9 mmol/L (3.5-5.1); Sodium 132 mmol/L (136-145)
--- NOTE | 2018-08-06 04:44 | CON ---
DATE OF CONSULTATION: 08/05/2018 HISTORY OF PRESENT ILLNESS: Crescencio is a pleasant gentleman who presented with congestive heart failure. He has been seen by Dr. Lopez. He has declined cardiac catheterization in the past. Coronary bypass grafting in the past in 1985. He is improved by his history and says his breathing is much better than it was yesterday. PAST MEDICAL HISTORY: Remarkable for; 1. Peripheral vascular disease. 2. History of coronary artery bypass grafting in 1985 . 3. History of cirrhosis. He admits to being a heavy drinker until about 2004. He said he quit smoking in 1985 when he had his surgery. 4. History of diabetes. MEDICATIONS: Lasix, insulin, simvastatin, amlodipine, aspirin, Coreg, and lisinopril. SOCIAL HISTORY: With his BiPAP quit smoking and quit drinking in 2004. ALLERGIES: He has no drug allergies. FAMILY HISTORY: Negative for lung disease or heart disease in early age, although he was young when he had heart disease. REVIEW OF SYSTEMS: 10 points system review completed, otherwise negative. PHYSICAL EXAMINATION: GENERAL: He is a very pleasant gentleman. VITAL SIGNS: He is afebrile, heart rate 76, respiratory rate 17, oximetry is 99 on room air. Blood pressure 135/52, 98% on 2 liters this morning. Intake and output is negative 15 mL as of this morning and is negative 1091 at the time of this dictation. HEENT: Pupils equal. Sclerae is anicteric. NECK: Supple. Trachea is in midline. Carotids symmetrical. LUNGS: Remarkable for crackles at both lung bases. HEART: Regular rhythm. S1 and S2 are normal. Grade 2/6 systolic murmur. ABDOMEN: Soft and nontender. EXTREMITIES: Without clubbing, cyanosis, or edema. LABORATORY DATA: White count 6, hemoglobin 11.5, platelets 91,000. Sodium 137 , potassium 3.7, chloride 109, bicarbonate 18, BUN 36, creatinine 1.7. IMAGING: Chest radiograph reviewed by me is consistent with heart failure. IMPRESSION: 1. Congestive heart failure, decompensated. 2. History of single vessel coronary bypass grafting. He has declined catheterization in the past. 3. Diabetes. 4. Mild hyperchloremic acidosis? renal tubular acidosis. 5. Acute on chronic kidney disease. 6. Elevated liver enzymes, says he is no longer drinking. 7. Hypoalbuminemia and thrombocytopenia most likely secondary to his liver disease. We will be happy to follow he appears to be improving and continued to gently diuresing, monitoring his renal function. This is a 50-minute consult, with greater than 50% of the time was spent in the unit coordinating care. SUSHANT
[2018-08-06] MEDS: Furosemide 40 MG/4 ML VIAL SLOW IVP SCH (06:36)
[2018-08-06] MEDS: HumaLOG 300 UNITS/3 ML VIAL SC PRN ×3 (06:36→20:33)
[2018-08-06] MEDS ORDERED: predniSONE 20 MG TAB PO SCH (08:00)
[2018-08-06] MEDS ORDERED: Insulin NPH/Reg Insulin Hm 300 UNITS/3 ML VIAL SC SCH (08:39)
[2018-08-06] MEDS: Enoxaparin Sodium 40 MG/0.4 ML SYRINGE SC SCH (08:58)
--- NOTE | 2018-08-06 08:58 | PDOC.FM ---
- Subjective Subjective: Mr. Prather feels well. Denies CP, SOB, difficulty breathing. Says he has not been sleeping well. No new complaints. - Objective MAR Reviewed: Yes Vital Signs & Weight: Vital Signs (12 hours) Temp Pulse Resp BP Pulse Ox 08/06/18 07:31 97.9 F 70 16 136/58 L 93 L 08/06/18 03:49 70 18 123/53 L 95 08/06/18 03:27 65 16 95 08/05/18 22:16 73 16 96 Weight Weight 85.8 kg I&O: 08/05/18 08/06/18 08/07/18 06:59 06:59 06:59 Intake Total 360 1641 Output Total 375 500 Balance -15 1141 Result Diagrams: 08/06/18 03:25 08/06/18 03:25 <Dalia Denny - Last Filed: 08/06/18 08:59> - Objective Vital Signs & Weight: Vital Signs (12 hours) Temp Pulse Pulse Pulse Resp BP BP 08/07/18 14:38 66 68 157/71 H 160/65 H 08/07/18 11:23 97.1 F L 62 18 08/07/18 08:16 97.1 F L 62 18 08/07/18 05:43 64 16 BP Pulse Ox Pulse Ox Pulse Ox 08/07/18 14:38 97 95 08/07/18 11:23 144/67 H 98 08/07/18 08:16 158/65 H 95 08/07/18 05:43 152/72 H Weight Weight 85.774 kg I&O: 08/06/18 08/07/18 08/08/18 06:59 06:59 06:59 Intake Total 1641 1212 Output Total 500 450 Balance 1141 762 Result Diagrams: 08/07/18 04:16 08/07/18 04:16 <Nalini Herzog - Last Filed: 08/07/18 16:37> Phys Exam - Physical Examination Constitutional: NAD Respiratory: no wheezing, no rales, no rhonchi, clear to auscultation bilateral Cardiovascular: RRR, no significant murmur Gastrointestinal: soft, non-tender, no distention, positive bowel sounds Musculoskeletal: no edema, pulses present Neurological: non-focal, moves all 4 limbs Psychiatric: normal affect Skin: normal turgor <Dalia Denny - Last Filed: 08/06/18 08:59> Dx/Plan (1) Acute bronchitis Code(s): J20.9 - ACUTE BRONCHITIS, UNSPECIFIED Status: Acute (2) Acute on chronic diastolic CHF (congestive heart failure) Code(s): I50.33 - ACUTE ON CHRONIC DIASTOLIC (CONGESTIVE) HEART FAILURE Status : Acute (3) Anxiety Code(s): F41.9 - ANXIETY DISORDER, UNSPECIFIED Status: Acute (4) CAD (coronary artery disease) Code(s): I25.10 - ATHSCL HEART DISEASE OF [place] CORONARY ARTERY W/O ANG PCTRS Status: Chronic (5) HLD (hyperlipidemia) Code(s): E78.5 - HYPERLIPIDEMIA, UNSPECIFIED Status: Chronic (6) HTN (hypertension) Code(s): I10 - ESSENTIAL (PRIMARY) HYPERTENSION Status: Chronic (7) NSTEMI (non-ST elevated myocardial infarction) Code(s): I21.4 - NON-ST ELEVATION (NSTEMI) MYOCARDIAL INFARCTION Status: Acute - Plan Plan: 72 year old male with history of CAD s/p CABG 1985, stent in 2006, HTN, DM type II that presents with shortness of breath and chest pain. NSTEMI - Troponin trended down 1.4->1.2 - hx of CAD with CABG in 1985 and stent in 2006 - monitor on telemetry - Cardiology, Dr. Lopez consulted. Appreciate recommendations - On lovenox 40 daily - Nitro PRN - Continue home medications Acute on chronic HFpEF - Echo 02/2018 EF 50-55% with posterior wall akinesis, inferior wall and lateral wall hypokineses, and PA systolic pressure of 46 mmHg. - Lasix discontinued - Repeat echo pending - Fluid restriction 1500 mL TERRENCE on CKD - BUN 37 with Cr 1.72, GFR 39 on admission. Today Cr 2.3, GFR 28. - Continue to monitor - avoid nephrotoxic medications. Lasix discontinued. Acute hypoxic respiratory failure, improved - Does not require O2 at baseline. No hx of COPD, though has hx of tobacco abuse. - on RA - Likely 2/2 CHF exacerbation vs component of acute bronchitis - Duonebs prn. Steroids discontinued. CHF management as above. DM type II - BG 132-380 in past 24hrs. Steroids likely contributory. - Restart home insulin, 70/30 28 units BID - Mild SSI - ACHS accuchecks - HgA1c 6.1 in 04/2018 Thrombocytopenia, stable - Likely 2/2 cirrhosis - platelets 89 this morning Pulmonary HTN - Repeat echo pending HTN - Continue home medications - PRN for SBP >180 HLD - Continue home medications Cirrhosis - LFTs elevated; continue to trend - has history of Hepatitis C DVT PPX: Lovenox GI PPX: Protonix Dispo: Cardiology recs <Dalia Denny - Last Filed: 08/06/18 08:59> Attending Addendum - Attending Addendum Date/Time: 08/06/18 2427 I personally evaluated the patient and discussed the management with Dr. Denny. I agree with the History, Examination, Assessment and Plan documented above with any addition or exceptions noted below. The patient's renal function worsened. Lasix is being held. Will transfer to telemetry. Appreciate cardiology recs. Pt's respiratory status is stable. <Nalini Herzog - Last Filed: 08/07/18 16:37>
[2018-08-06] MEDS: ALPRAZolam 0.25 MG TAB PO SCH ×2 (09:01→20:32)
[2018-08-06] MEDS: Finasteride 5 MG TAB PO SCH (09:01)
[2018-08-06] MEDS: Amlodipine 10 MG TAB PO SCH (09:01)
--- NOTE | 2018-08-06 13:11 | PRG ---
DATE OF SERVICE: 08/06/2018 SUBJECTIVE: Mr. Prather says he is feeling better. He had a good night last night. OBJECTIVE: VITAL SIGNS: He is afebrile, heart rate 83, respiratory rate 17, oximetry is 98 on room air, and blo od pressure 118/52. Intake and output is positive 1141. LUNGS: Remarkable for fine crackles at his bases. CARDIOVASCULAR: Regular rhythm. ABDOMEN: Soft. IMPRESSION: 1. Coronary artery disease, status post coronary artery bypass grafting x1 in 1985. 2. Anemia with a decreased mean corpuscular volume. 3. Thrombocytopenia, likely secondary to chronic liver disease. PLAN: Continue supportive care with guidance of Cardiology. No interventions planned. He probably could be discharged home for close outpatient follow up either in the Heart Failure [facility] or with [facility] residents.
--- NOTE | 2018-08-06 15:39 | PRG ---
DATE OF SERVICE: 08/06/2018 SUBJECTIVE: Mr. Prather is breathing better. He is feeling better. No chest pain. OBJECTIVE: VITAL SIGNS: Blood pressure is relatively low, now 118/52, pulse 83, regular. LUNGS: Clear anteriorly and posteriorly. CARDIAC: Normal S1, normal S2. ABDOMEN: Soft, nontender. EXTREMITIES: Still moderate edema. LABORATORY DATA: The creatinine is 2.3. Estimated GFR is 28. ASSESSMENT: 1. Status post non-ST elevation infarction. 2. Congestive heart failure, likely diastolic, acute on chronic. 3. Severe coronary disease. 4. Diabetes. PLAN: 1. The furosemide will be reduced. We will not give any intravenous today, then reduced to 20 mg in travenously twice a day starting tomorrow. 2. Echocardiogram is pending. 3. Start very low dose beta blockers. 4. Reduce amlodipine with blood pressure being relatively low. 5. We had to stop SEBAS inhibitors with worsening of renal function at this point.
[2018-08-06] MEDS: Insulin NPH/Reg Insulin Hm 300 UNITS/3 ML VIAL SC SCH (16:58)
--- NOTE | 2018-08-06 17:12 | PRG ---
DATE OF SERVICE: 08/06/2018 The patient is a 72-year-old male admitted for an NSTEMI as well as CHF exacerbation and coronary art felicia disease. The patient's chest pain has resolved. He was sitting up on the side of the bed today. He has not required additional BiPAP. His creatinine increased from 1.71-2.32. His diuretics are being held today. Dr. Lopez is on the case and is following the patient. We will continue with flu id restriction and monitoring the patient's weight. The patient is stable to transfer to the telemet ry floor. Steroids have been discontinued and DuoNebs will be changed to as needed.
[2018-08-06] MEDS: Simvastatin 20 MG TAB PO SCH (20:32)
[2018-08-07 04:51] LABS: #Lymphocytes 0.8 thou/uL (1.20-3.40); #Monocytes 0.4 thou/uL (0.11-0.59); #Neutrophils 5.4 thou/uL (1.40-6.50); %Eosinophils 0.3 % (0.0-10.0); %Lymphocytes 11.5 % (21.0-51.0); %Monocytes 5.3 % (0.0-10.0); %Neutrophils 82.9 % (42.0-75.0); Hemoglobin 10.1 g/dL (14.0-18.0); Mean Corpuscular HGB CONC 33.1 g/dL (32.0-36.0); Mean Corpuscular Hemoglobin 27.1 pg (27.0-31.0); Mean Corpuscular Volume 81.8 fL (78.0-98.0); Mean Platelet Volume 11.1 fL (7.4-10.4); Platelet Count 96 thou/uL (130-400); RBC Distribution Width 14.7 % (11.5-14.5); Red Blood Cell (RBC) Count 3.71 mill/uL (4.70-6.10); White Blood Cell (WBC) Count 6.5 thou/uL (4.8-10.8)
[2018-08-07 04:56] LABS: Anion Gap 11 mmol/L (10-20); BUN (Urea Nitrogen) 67 mg/dL (8.4-25.7); Calc. Creatinine Clearance 40 mL/min (70-130); Calcium 8.6 mg/dL (7.8-10.44); Carbon Dioxide 20 mmol/L (23-31); Chloride 108 mmol/L (98-107); Estimated GFR-MDRD 33; Glucose 128 mg/dL (83-110); Potassium 4.1 mmol/L (3.5-5.1); Sodium 135 mmol/L (136-145)
[2018-08-07] MEDS ORDERED: Furosemide 20 MG/2 ML VIAL SLOW IVP SCH (06:00)
--- NOTE | 2018-08-07 06:19 | PDOC.FM ---
- Subjective Subjective: Pt. reports he did well overnight. He denies chest pain, SOB, and abdominal pain. Pt. has no complaints. - Objective MAR Reviewed: Yes Vital Signs & Weight: Vital Signs (12 hours) Temp Pulse Resp BP BP BP Pulse Ox 08/07/18 05:43 64 16 152/72 H 08/07/18 04:00 97.9 F 70 22 H 163/73 H 96 08/07/18 01:00 96 08/07/18 00:00 68 20 136/62 95 08/06/18 21:00 98.1 F 72 16 159/68 H 94 L 08/06/18 19:20 97.6 F 69 17 130/56 L 98 Weight Weight 85.774 kg I&O: 08/05/18 08/06/18 08/07/18 06:59 06:59 06:59 Intake Total 360 1641 1212 Output Total 375 500 450 Balance -15 1141 762 Result Diagrams: 08/07/18 04:16 08/07/18 04:16 <Gamaliel Zaman - Last Filed: 08/07/18 18:13> - Objective Vital Signs & Weight: Vital Signs (12 hours) Temp Pulse Pulse Pulse Resp BP BP 08/07/18 20:23 98.3 F 57 L 16 08/07/18 20:18 98.3 F 57 L 16 08/07/18 16:51 97 F L 59 L 18 08/07/18 14:38 66 68 157/71 H 160/65 H 08/07/18 11:23 97.1 F L 62 18 BP Pulse Ox Pulse Ox Pulse Ox 08/07/18 20:23 98 08/07/18 20:18 159/73 H 98 08/07/18 16:51 160/74 H 98 08/07/18 14:38 97 95 08/07/18 11:23 144/67 H 98 Weight Weight 85.774 kg I&O: 08/06/18 08/07/18 08/08/18 06:59 06:59 06:59 Intake Total 1641 1212 987 Output Total 381 964 7091 Balance 1141 762 -333 Result Diagrams: 08/07/18 04:16 08/07/18 04:16 <Nalini Herzog - Last Filed: 08/07/18 23:22> Phys Exam - Physical Examination Constitutional: NAD HEENT: PERRLA, moist MMs Neck: no JVD, full ROM Respiratory: no wheezing, clear to auscultation bilateral Cardiovascular: RRR, no significant murmur Gastrointestinal: soft, non-tender, positive bowel sounds mildly distended Musculoskeletal: pulses present, edema present (mild edema) Neurological: normal sensation, moves all 4 limbs Psychiatric: normal affect, A&O x 3 Skin: normal turgor, cap refill <2 seconds <Gamaliel Zaman - Last Filed: 08/07/18 18:13> Dx/Plan (1) Diabetes mellitus, type II Status: Acute (2) Acute kidney injury superimposed on chronic kidney disease Code(s): N17.9 - ACUTE KIDNEY FAILURE, UNSPECIFIED; N18.9 - CHRONIC KIDNEY DISEASE, UNSPECIFIED Status: Acute (3) Acute bronchitis Code(s): J20.9 - ACUTE BRONCHITIS, UNSPECIFIED Status: Acute (4) Acute on chronic diastolic CHF (congestive heart failure) Code(s): I50.33 - ACUTE ON CHRONIC DIASTOLIC (CONGESTIVE) HEART FAILURE Status : Acute (5) CAD (coronary artery disease) Code(s): I25.10 - ATHSCL HEART DISEASE OF [place] CORONARY ARTERY W/O ANG PCTRS Status: Chronic (6) NSTEMI (non-ST elevated myocardial infarction) Code(s): I21.4 - NON-ST ELEVATION (NSTEMI) MYOCARDIAL INFARCTION Status: Acute (7) Cirrhosis of liver Code(s): K74.60 - UNSPECIFIED CIRRHOSIS OF LIVER Status: Chronic (8) Hepatitis C Code(s): B19.20 - UNSPECIFIED VIRAL HEPATITIS C WITHOUT HEPATIC COMA Status: Chronic - Plan Plan: This is a 72 yo male with PMH of CAD sp CABG 1985, stent in 2006, HTN, DMII NSTEMI -Lasix 20mg are being started this AM. Cards Dr. Lopez is consulted -Echo shows EF 40-45%, left atrial dilatation. -He is currently on lovenox 40. Pt. has creatinine clearance of 18. May consider heparin vs. lower dose -Nitro PRN Acute on chronic HFpEF -Echo results as above, fluid restriction 1500, restarting lasix TERRENCE on CKD -Current BUN 67 (59) and creatinine 2.02 (2.32). Lisinopril has been DC, starting low dose of lasix this morning per cards. Acute hypoxic respiratory failure -Improving. No O2 requirement overnight. Duonebs PRN DM type 2 -Blood sugar range is broad. Fasting sugar appears closer to normal. Will increase sliding scale. Continue accuchecks. A1C 04/2018 6.1 Thrombocytopenia, stable -96, we will monitor, continue with lovenox for DVT prophylaxis Pulmonary HTN -Confirmed by Echo HTN -Continue home meds HLD -Continue home meds Cirrhosis -Aware, history of Hep C Code: Full Prophylaxis: lovenox, protonix Family: none at bedside Disposition: home in 1-2 days <Gamaliel Zaman - Last Filed: 08/07/18 18:13> Attending Addendum - Attending Addendum Date/Time: 08/07/18619 I personally evaluated the patient and discussed the management with Dr. Zaman. I agree with the History, Examination, Assessment and Plan documented above with any addition or exceptions noted below. The patient's renal function is improved from 2.32 to 2.02 today. He is feeling well. No respiratory distress. Will change IV lasix to PO. Echo shows EF down to 40-45% which is a decrease from previous echo. Will f/u with cardiology recs on whether he will get a cath. <Nalini Herzog - Last Filed: 08/07/18 23:22>
[2018-08-07] MEDS: Insulin NPH/Reg Insulin Hm 300 UNITS/3 ML VIAL SC SCH ×2 (07:57→16:52)
[2018-08-07] MEDS: ALPRAZolam 0.25 MG TAB PO SCH ×2 (07:58→20:23)
[2018-08-07] MEDS: Carvedilol 3.125 MG TAB PO SCH ×2 (07:59→20:23)
[2018-08-07] MEDS: Finasteride 5 MG TAB PO SCH (08:00)
[2018-08-07] MEDS: Enoxaparin Sodium 40 MG/0.4 ML SYRINGE SC SCH (08:00)
[2018-08-07] MEDS ORDERED: Amlodipine 10 MG TAB PO SCH (09:00)
[2018-08-07] MEDS: HumaLOG 300 UNITS/3 ML VIAL SC PRN (11:55)
[2018-08-07] MEDS ORDERED: Enoxaparin Sodium 30 MG/0.3 ML SYRINGE SC SCH (12:00)
[2018-08-07] MEDS: Furosemide 20 MG TAB PO SCH (13:56)
--- NOTE | 2018-08-07 14:03 | PRG ---
DATE OF SERVICE: 08/07/2018 SUBJECTIVE: The patient is doing reasonable, had no complaints. PHYSICAL EXAMINATION: VITAL SIGNS: Temperature 97.1, pulse 62, respirations 18, O2 saturation 98% on room air, blood press ure 144/67. HEENT: Unremarkable. NECK: No JVD. CHEST: Clear without wheezing. CARDIAC: S1 and S2 regular. ABDOMEN: Soft. EXTREMITIES: No edema. LABORATORY DATA: White blood cell count 6.5, hematocrit 30.4, platelet count 96. Sodium 135, potass ium 4.1, chloride 108, CO2 of 20, BUN 67, creatinine 2.0, glucose 128. ASSESSMENT: 1. Coronary artery disease. 2. Thrombocytopenia. 3. Depressed ejection fraction. RECOMMENDATIONS: Pulmonary status stable. We will follow intermittently.
--- NOTE | 2018-08-07 17:58 | PDOC.CTH ---
<Vonda Pastrana - Last Filed: 08/07/18 17:51> Cardiology Progress Note - Subjective The pt seen and examined. No overnight events. No cardiac complaints. - Objective Vital Signs Temp Pulse Pulse Pulse Resp BP BP 08/07/18 16:51 97 F L 59 L 18 08/07/18 14:38 66 68 157/71 H 160/65 H 08/07/18 11:23 97.1 F L 62 18 08/07/18 08:16 97.1 F L 62 18 BP Pulse Ox Pulse Ox Pulse Ox 08/07/18 16:51 160/74 H 98 08/07/18 14:38 97 95 08/07/18 11:23 144/67 H 98 08/07/18 08:16 158/65 H 95 Weight 189 lb 1.6 oz 08/06/18 08/07/18 08/08/18 06:59 06:59 06:59 Intake Total 1641 1212 987 Output Total 750 368 6887 Balance 1141 762 -333 - Physical Examination General/Neuro: alert & oriented x3 Neck: no JVD present Lungs: CTA Heart: RRR Abdomen: soft Extremities: other: (2+ pitting BLE edema) - Telemetry Telemetry Rhythm: SR 1st AVB 67 - Labs Result Diagrams: 08/07/18 04:16 08/07/18 04:16 Troponin/CKMB CK-MB (CK-2) 7.9 ng/mL (0-6.6) H* 08/04/18 22:03 Troponin I 1.231 ng/mL (< 0.028) H* 08/05/18 04:15 - Assessment/Plan 1. Acute on Chronic diastolic HF - On BBlocker and Lasix 20mg PO BID; not on SEBAS /ARB due to hx of CKD. 2. NSTEMI - Stable with Bblocker, ASA, statin. Not on SEBAS/ARB due to hx of CKD 3. CAD with hx of CABG x1 in 1985 and stent in 2006 - cont. to monitor on tele 4. HTN - increase Norvasc 5mg from QD to BID 5. PVD - Atrial Doppler study in 02/2018 showed mild-mod stenosis in Bilat Popliteal arteries. 6. TERRENCE on CKD - managed by nephrolosit 7. DM type 2 - managed by PCP 8. Hep C with Cirrhosis 9. Hx of GI bleed MAR reviewed * Echo on 08/06/18 showed EF 40-45%, inferior akinesis, severe dilated LA, mod MR, mod TR, and mod elevated PAP * Possible Cardiac cath on 08/09/[address] Lopez Review of Systems - Review of Systems Constitutional: reports: no symptoms reported EENTM: reports: no symptoms reported Respiratory: reports: no symptoms reported Cardiac (ROS): reports: no symptoms reported ABD/GI: reports: no symptoms reported : reports: no symptoms reported Musculoskeletal: reports: no symptoms reported <Al Taylor - Last Filed: 08/07/18 23:39> Cardiology Progress Note - Objective Vital Signs Temp Pulse Pulse Pulse Resp BP BP 08/07/18 20:23 98.3 F 57 L 16 08/07/18 20:18 98.3 F 57 L 16 08/07/18 16:51 97 F L 59 L 18 08/07/18 14:38 66 68 157/71 H 160/65 H BP Pulse Ox Pulse Ox Pulse Ox 08/07/18 20:23 98 08/07/18 20:18 159/73 H 98 08/07/18 16:51 160/74 H 98 08/07/18 14:38 97 95 Weight 189 lb 1.6 oz 08/06/18 08/07/18 08/08/18 06:59 06:59 06:59 Intake Total 1641 1212 987 Output Total 274 225 8865 Balance 1141 762 -333 - Labs Result Diagrams: 08/07/18 04:16 08/07/18 04:16 Troponin/CKMB CK-MB (CK-2) 7.9 ng/mL (0-6.6) H* 08/04/18 22:03 Troponin I 1.231 ng/mL (< 0.028) H* 08/05/18 04:15 - Assessment/Plan Pt. seen and evaluated by me.I agree with the A/P by the PRODUCTION HELPER. Chest clear. RRR
--- NOTE | 2018-08-07 19:20 | EKG ---
Test Reason : Blood Pressure : / mmHG Vent. Rate : 047 BPM Atrial Rate : 054 BPM P-R Int : 000 ms QRS Dur : 092 ms QT Int : 536 ms P-R-T Axes : 000 -44 -39 degrees QTc Int : 474 ms Atrial fibrillation with slow ventricular response Left axis deviation Lateral infarct , age undetermined Possible Inferior infarct , age undetermined Abnormal ECG Confirmed by CLINTON KLEIN DO ([id number]), make up editor ANNAMARIA MASON ([id number]) on 08/07/2018 7:19:43 PM Referred By: Confirmed By:CLINTON KLEIN DO
[2018-08-07] MEDS: Simvastatin 20 MG TAB PO SCH (20:23)
[2018-08-08 05:14] LABS: Anion Gap 11 mmol/L (10-20); BUN (Urea Nitrogen) 51 mg/dL (8.4-25.7); Calc. Creatinine Clearance 52 mL/min (70-130); Calcium 8.6 mg/dL (7.8-10.44); Carbon Dioxide 21 mmol/L (23-31); Chloride 109 mmol/L (98-107); Estimated GFR-MDRD 44; Glucose 156 mg/dL (83-110); Potassium 4.3 mmol/L (3.5-5.1); Sodium 137 mmol/L (136-145)
[2018-08-08 05:27] LABS: Hemoglobin 10.5 g/dL (14.0-18.0); Mean Corpuscular HGB CONC 33.1 g/dL (32.0-36.0); Mean Corpuscular Hemoglobin 26.9 pg (27.0-31.0); Mean Corpuscular Volume 81.4 fL (78.0-98.0); Mean Platelet Volume 10.5 fL (7.4-10.4); Platelet Count 77 thou/uL (130-400); RBC Distribution Width 14.5 % (11.5-14.5); Red Blood Cell (RBC) Count 3.91 mill/uL (4.70-6.10); White Blood Cell (WBC) Count 2.8 thou/uL (4.8-10.8)
--- NOTE | 2018-08-08 05:52 | PDOC.FM ---
- Subjective Subjective: Pt. has no complaints overnight. He denies SOB, cp, n/v, or abdominal pain. He reports he does not want any open heart surgery if it can be avoided. - Objective MAR Reviewed: Yes Vital Signs & Weight: Vital Signs (12 hours) Temp Pulse Resp BP Pulse Ox 08/08/18 03:34 97.9 F 61 19 148/61 H 90 L 08/07/18 20:23 98.3 F 57 L 16 98 08/07/18 20:18 98.3 F 57 L 16 159/73 H 98 Weight Weight 84.64 kg I&O: 08/06/18 08/07/18 08/08/18 06:59 06:59 06:59 Intake Total 1641 1212 1237 Output Total 159 042 6059 Balance 1141 132 1283 Result Diagrams: 08/08/18 04:30 08/08/18 04:30 <Gamaliel Zaman - Last Filed: 08/08/18 10:32> - Objective Vital Signs & Weight: Vital Signs (12 hours) Temp Pulse Resp BP BP BP Pulse Ox 08/08/18 16:00 98.5 F 59 L 15 165/71 H 98 08/08/18 11:20 98.6 F 61 17 158/72 H 99 08/08/18 09:04 61 179/81 H 08/08/18 08:00 98.5 F 58 L 17 179/81 H 97 08/08/18 07:40 98.5 F 61 17 97 08/08/18 05:46 95 Weight Weight 84.64 kg I&O: 08/07/18 08/08/18 08/09/18 06:59 06:59 06:59 Intake Total 1212 1237 Output Total 450 2520 Balance 762 -1283 Result Diagrams: 08/08/18 04:30 08/08/18 04:30 <Nalini Herzog - Last Filed: 08/08/18 17:11> Phys Exam - Physical Examination Constitutional: NAD HEENT: moist MMs Neck: supple Respiratory: no wheezing, clear to auscultation bilateral Cardiovascular: RRR, no significant murmur Gastrointestinal: non-tender, no distention, positive bowel sounds Musculoskeletal: pulses present, edema present (1+ pitting edema to mid calf) Neurological: normal sensation, moves all 4 limbs Psychiatric: A&O x 3 Skin: cap refill <2 seconds <Gamaliel Zaman - Last Filed: 08/08/18 10:32> Dx/Plan (1) Diabetes mellitus, type II Status: Acute (2) Acute kidney injury superimposed on chronic kidney disease Code(s): N17.9 - ACUTE KIDNEY FAILURE, UNSPECIFIED; N18.9 - CHRONIC KIDNEY DISEASE, UNSPECIFIED Status: Acute (3) Acute bronchitis Code(s): J20.9 - ACUTE BRONCHITIS, UNSPECIFIED Status: Acute (4) Acute on chronic diastolic CHF (congestive heart failure) Code(s): I50.33 - ACUTE ON CHRONIC DIASTOLIC (CONGESTIVE) HEART FAILURE Status : Acute (5) CAD (coronary artery disease) Code(s): I25.10 - ATHSCL HEART DISEASE OF [place] CORONARY ARTERY W/O ANG PCTRS Status: Chronic (6) NSTEMI (non-ST elevated myocardial infarction) Code(s): I21.4 - NON-ST ELEVATION (NSTEMI) MYOCARDIAL INFARCTION Status: Acute (7) Cirrhosis of liver Code(s): K74.60 - UNSPECIFIED CIRRHOSIS OF LIVER Status: Chronic (8) Hepatitis C Code(s): B19.20 - UNSPECIFIED VIRAL HEPATITIS C WITHOUT HEPATIC COMA Status: Chronic - Plan Plan: This is a 72 yo male with PMH of CAD sp CABG 1985, stent in 2006, HTN, DMII NSTEMI -Lasix 20mg are being started this AM. Cards Dr. Lopez is consulted -Echo shows EF 40-45%, left atrial dilatation. -He is currently on lovenox 40. Pt. has creatinine clearance of 18. May consider heparin vs. lower dose -Nitro PRN -Possible cardiac cath on Thursday per cardiology. Pt. will be NPO after midnight in preparation. Acute on chronic HFpEF -Echo results as above, fluid restriction 1500, restarting lasix -Pt. down 1 Kg from yesterday TERRENCE on CKD -Current BUN 67 (59) and creatinine 2.02 (2.32). Lisinopril has been DC, starting low dose of lasix this morning per cards. Acute hypoxic respiratory failure -Improving. No O2 requirement overnight. Duonebs PRN DM type 2 -Blood sugar range is broad. Fasting sugar appears closer to normal. Will increase sliding scale. Continue accuchecks. A1C 04/2018 6.1 Thrombocytopenia, stable -96, we will monitor, lovenox held, we will do SCDs for DVT prophylaxis Pulmonary HTN -Confirmed by Echo HTN -Continue home meds HLD -Continue home meds Cirrhosis -Aware, history of Hep C Code: Full Prophylaxis: SCDs, protonix Family: none at bedside Disposition: home in 1-2 days <Gamaliel Zaman - Last Filed: 08/08/18 10:32> Attending Addendum - Attending Addendum Date/Time: 08/08/18 0710 I personally evaluated the patient and discussed the management with Dr. Zaman. I agree with the History, Examination, Assessment and Plan documented above with any addition or exceptions noted below. The patient is feeling well this morning. Creatinine continues to improve. Pt remains on PO lasix. Pt will likely have cath with Dr. Lopez tomorrow per cardiology notes. <Nalini Herzog - Last Filed: 08/08/18 17:11>
[2018-08-08 06:15] LABS: Hypochromia SLIGHT = 6-15 cells (100X) (0-5/hpf); Lymphocytes 24 % (21-51); MDiff Complete? YES; Monocytes 8 % (0-10); Neutrophil 68 % (42-75); PLT Morphology Comment Appears Decreased
[2018-08-08] MEDS: Insulin NPH/Reg Insulin Hm 300 UNITS/3 ML VIAL SC SCH ×2 (08:25→16:41)
[2018-08-08] MEDS: ALPRAZolam 0.25 MG TAB PO SCH ×2 (08:30→20:38)
[2018-08-08] MEDS ORDERED: Enoxaparin Sodium 30 MG/0.3 ML SYRINGE SC SCH (09:00)
[2018-08-08] MEDS ORDERED: Enoxaparin Sodium 40 MG/0.4 ML SYRINGE SC SCH (09:00)
[2018-08-08] MEDS: Amlodipine 5 MG TAB PO SCH ×2 (09:04→20:38)
[2018-08-08] MEDS: Carvedilol 3.125 MG TAB PO SCH ×2 (09:06→20:38)
[2018-08-08] MEDS: Furosemide 20 MG TAB PO SCH ×2 (09:06→14:08)
[2018-08-08] MEDS: Finasteride 5 MG TAB PO SCH (09:06)
[2018-08-08] MEDS: HumaLOG 300 UNITS/3 ML VIAL SC PRN (11:31)
--- NOTE | 2018-08-08 13:40 | PDOC.CTH ---
<Vonda Pastrana - Last Filed: 08/08/18 14:59> Cardiology Progress Note - Subjective The pt seen and examined. No overnight events. No cardiac complaints. Cr level is 1.55 which was > 2.0 yesterday. - Objective Vital Signs Temp Pulse Resp BP BP Pulse Ox 08/08/18 11:20 98.6 F 61 17 158/72 H 99 08/08/18 09:04 61 179/81 H 08/08/18 08:00 98.5 F 58 L 17 179/81 H 97 08/08/18 07:40 98.5 F 61 17 97 08/08/18 05:46 95 08/08/18 03:34 97.9 F 61 19 148/61 H 90 L Weight 186 lb 9.6 oz 08/07/18 08/08/18 08/09/18 06:59 06:59 06:59 Intake Total 1212 1237 Output Total 450 2520 Balance 762 -1283 - Physical Examination General/Neuro: alert & oriented x3 Neck: no JVD present Lungs: CTA (diminished at bases) Heart: RRR Abdomen: soft (mild BLE edema) Extremities: other: - Telemetry Telemetry Rhythm: SR, 1st AVB, HR 58-60s - Labs Result Diagrams: 08/08/18 04:30 08/08/18 04:30 Troponin/CKMB CK-MB (CK-2) 7.9 ng/mL (0-6.6) H* 08/04/18 22:03 Troponin I 1.231 ng/mL (< 0.028) H* 08/05/18 04:15 - Assessment/Plan 1. Acute on Chronic diastolic HF - On BBlocker and Lasix 20mg PO BID; not on SEBAS /ARB due to hx of CKD. 2. NSTEMI - Stable with Bblocker, ASA, statin. Not on SEBAS/ARB due to hx of CKD 3. CAD with hx of CABG x1 in 1985 and stent in 2006 - cont. to monitor on tele 4. HTN - cont. to monitor 5. PVD - Atrial Doppler study in 02/2018 showed mild-mod stenosis in Bilat Popliteal arteries. 6. TERRENCE on CKD - managed by nephrolosit 7. DM type 2 - managed by PCP 8. Hep C with Cirrhosis 9. Hx of GI bleed MAR reviewed * Echo on 08/06/18 showed EF 40-45%, inferior akinesis, severe dilated LA, mod MR, mod TR, and mod elevated PAP * Possible Cardiac cath on 08/09/[address] Lopez. The procedure and the risk of LHC were explained to the pt, which included but not limited to: Hemorrhage, infection, perforation of catheter, thrombosis, anaphylaxis reaction and damage to renal function by Iodine, CVA, CO, and possible . He voiced understanding and agreed to proceed the procedure tomorrow by Dr Lopez. Review of Systems - Review of Systems Constitutional: reports: no symptoms reported EENTM: reports: no symptoms reported Respiratory: reports: no symptoms reported Cardiac (ROS): reports: no symptoms reported ABD/GI: reports: no symptoms reported : reports: no symptoms reported <Al Taylor - Last Filed: 08/08/18 18:29> Cardiology Progress Note - Objective Vital Signs Temp Pulse Resp BP BP BP Pulse Ox 08/08/18 16:00 98.5 F 59 L 15 165/71 H 98 08/08/18 11:20 98.6 F 61 17 158/72 H 99 08/08/18 09:04 61 179/81 H 08/08/18 08:00 98.5 F 58 L 17 179/81 H 97 08/08/18 07:40 98.5 F 61 17 97 Weight 186 lb 9.6 oz 08/07/18 08/08/18 08/09/18 06:59 06:59 06:59 Intake Total 1212 1237 1080 Output Total 450 2520 1375 Balance 762 -1283 -295 - Labs Result Diagrams: 08/08/18 04:30 08/08/18 04:30 Troponin/CKMB CK-MB (CK-2) 7.9 ng/mL (0-6.6) H* 08/04/18 22:03 Troponin I 1.231 ng/mL (< 0.028) H* 08/05/18 04:15 - Assessment/Plan Pt. seen and eval. by me. I agree with the A/P by the [employer] DRAFTSPERSON. Plan for cardiac cath tomorrow. Pt. denies symptoms at present. Chest clear. RRR.
[2018-08-08] MEDS: Simvastatin 20 MG TAB PO SCH (20:38)
[2018-08-09 05:24] LABS: Anion Gap 12 mmol/L (10-20); BUN (Urea Nitrogen) 36 mg/dL (8.4-25.7); Calc. Creatinine Clearance 54 mL/min (70-130); Carbon Dioxide 21 mmol/L (23-31); Chloride 110 mmol/L (98-107); Estimated GFR-MDRD 48; Glucose 96 mg/dL (83-110); Potassium 4.3 mmol/L (3.5-5.1); Sodium 139 mmol/L (136-145)
[2018-08-09 05:44] LABS: Band 9 % (5-11); Eosinophils 4 % (0-10); Hemoglobin 11.3 g/dL (14.0-18.0); Lymphocytes 30 % (21-51); MDiff Complete? YES; Mean Corpuscular HGB CONC 32.2 g/dL (32.0-36.0); Mean Corpuscular Hemoglobin 27.3 pg (27.0-31.0); Mean Corpuscular Volume 84.6 fL (78.0-98.0); Mean Platelet Volume 10.5 fL (7.4-10.4); Monocytes 2 % (0-10); Neutrophil 54 % (42-75); PLT Morphology Comment Appears Decreased; Platelet Count 81 thou/uL (130-400); RBC Distribution Width 14.5 % (11.5-14.5); Red Blood Cell (RBC) Count 4.16 mill/uL (4.70-6.10); White Blood Cell (WBC) Count 2.9 thou/uL (4.8-10.8)
--- NOTE | 2018-08-09 05:45 | PDOC.FM ---
- Subjective Subjective: Pt feels well this morning, denies CP or SOB. Denies any nausea/vomiting. No complaints other than he is hungry. NPO, Awaiting cardiac cath this morning with Dr. Lopez. - Objective Vital Signs & Weight: Vital Signs (12 hours) Temp Pulse Resp BP Pulse Ox 08/09/18 03:51 98.7 F 70 13 163/73 H 96 08/09/18 00:00 98.3 F 62 16 162/75 H 95 08/08/18 20:38 98.3 F 62 24 H 95 08/08/18 20:10 98.3 F 62 24 H 165/77 H 95 Weight Weight 83.098 kg I&O: 08/07/18 08/08/18 08/09/18 06:59 06:59 06:59 Intake Total 1212 1237 1080 Output Total 450 2520 1375 Balance 879 -5505 -057 Result Diagrams: 08/09/18 04:40 08/09/18 04:40 <Rosina Stewart - Last Filed: 08/09/18 11:51> - Objective Vital Signs & Weight: Vital Signs (12 hours) Temp Pulse Resp BP Pulse Ox 08/09/18 11:35 98.4 F 58 L 17 169/79 H 96 08/09/18 07:30 98.7 F 57 L 15 179/84 H 97 08/09/18 06:15 60 20 176/73 H 08/09/18 03:51 98.7 F 70 13 163/73 H 96 Weight Weight 83.098 kg I&O: 08/08/18 08/09/18 08/10/18 06:59 06:59 06:59 Intake Total 1237 1530 Output Total 2520 2150 Balance -5917 -482 Result Diagrams: 08/09/18 04:40 08/09/18 04:40 <Matheus Vee - Last Filed: 08/09/18 13:35> Phys Exam - Physical Examination Constitutional: NAD HEENT: PERRLA, moist MMs Neck: no nodes, supple Respiratory: no wheezing, no rales, no rhonchi, clear to auscultation bilateral Cardiovascular: RRR, no significant murmur Gastrointestinal: soft, non-tender, positive bowel sounds Musculoskeletal: no edema, pulses present Neurological: moves all 4 limbs Lymphatic: no nodes Psychiatric: normal affect, A&O x 3 <Rosina Stewart - Last Filed: 08/09/18 11:51> Dx/Plan (1) Acute bronchitis Code(s): J20.9 - ACUTE BRONCHITIS, UNSPECIFIED Status: Acute (2) Acute kidney injury superimposed on chronic kidney disease Code(s): N17.9 - ACUTE KIDNEY FAILURE, UNSPECIFIED; N18.9 - CHRONIC KIDNEY DISEASE, UNSPECIFIED Status: Acute (3) Acute on chronic diastolic CHF (congestive heart failure) Code(s): I50.33 - ACUTE ON CHRONIC DIASTOLIC (CONGESTIVE) HEART FAILURE Status : Acute (4) Diabetes mellitus, type II Status: Chronic (5) CAD (coronary artery disease) Code(s): I25.10 - ATHSCL HEART DISEASE OF [place] CORONARY ARTERY W/O ANG PCTRS Status: Chronic (6) NSTEMI (non-ST elevated myocardial infarction) Code(s): I21.4 - NON-ST ELEVATION (NSTEMI) MYOCARDIAL INFARCTION Status: Acute (7) Cirrhosis of liver Code(s): K74.60 - UNSPECIFIED CIRRHOSIS OF LIVER Status: Chronic (8) Hepatitis C Code(s): B19.20 - UNSPECIFIED VIRAL HEPATITIS C WITHOUT HEPATIC COMA Status: Chronic - Plan Plan: This is a 72 yo male with PMH of CAD sp CABG 1985, stent in 2006, HTN, DMII NSTEMI, resolved -Lasix 20mg. Cards Dr. Lopez consulted, appreciate recommendations -Echo shows EF 40-45%, left atrial dilatation. -D/C lovenox due to kidney disease -Nitro PRN -Cardiac cath on today per cardiology. Patient NPO since midnight last night. Awaiting cards recs Acute on chronic HFpEF -Echo results as above, fluid restriction 1500, on lasix -Pt. down .6 Kg from yesterday TERRENEC on CKD -BUN 36 (51) and Creatinine 1.45 (1.55). Lisinopril has been DC; low dose of lasix per cards. Acute hypoxic respiratory failure -Improving. Now on RA. Duonebs PRN DM type 2 -Blood sugar range is broad. Fasting sugar appears closer to normal. Continue accuchecks. A1C 04/2018 6.1 Thrombocytopenia, stable -81, we will continue to monitor, lovenox held, we will do SCDs for DVT prophylaxis PVD Atrial Doppler study in 02/2018 showed mild-mod stenosis in Bilat Popliteal arteries. Pulmonary HTN -Confirmed by Echo HTN -Continue home meds HLD -Continue home meds Cirrhosis -Aware, history of Hep C Code: Full Prophylaxis: SCDs, protonix Family: none at bedside <Rosina Stewart - Last Filed: 08/09/18 11:51> Attending Addendum - Attending Addendum Date/Time: 08/09/18 9077 I personally evaluated the patient and discussed the management with Dr. Stewart. I agree with the History, Examination, Assessment and Plan documented above with any addition or exceptions noted below. Patient here with NSTEMI and has cardiac cath this morning. Awaiting results and further mgmt per those results and cardiology recs. <Matheus Vee - Last Filed: 08/09/18 13:35>
[2018-08-09] MEDS ORDERED: Sodium Chloride 0.9% 1,000 ML IV SCH (06:00)
[2018-08-09] MEDS ORDERED: Communication Order-Pharmacy FS SCH (06:00)
[2018-08-09] MEDS ORDERED: Diazepam 5 MG TAB PO SCH (06:00)
[2018-08-09] MEDS: Amlodipine 5 MG TAB PO SCH ×2 (06:16→20:31)
[2018-08-09] MEDS: Carvedilol 3.125 MG TAB PO SCH ×2 (06:16→20:32)
[2018-08-09] MEDS: Finasteride 5 MG TAB PO SCH (06:17)
[2018-08-09] MEDS: Insulin NPH/Reg Insulin Hm 300 UNITS/3 ML VIAL SC SCH ×2 (07:49→16:28)
[2018-08-09] MEDS: ALPRAZolam 0.25 MG TAB PO SCH ×2 (08:12→20:31)
[2018-08-09] MEDS ORDERED: Fentanyl 100 MCG/2 ML VIAL ONE (08:35)
[2018-08-09] MEDS ORDERED: Midazolam HCl 2 mg/2 ml Vial ONE (08:35)
[2018-08-09] MEDS ORDERED: Nitroglycerin 4.9 GM Bottle ONE (09:35)
[2018-08-09] MEDS ORDERED: Nitroglycerin 0.4 MG TAB (25 Tab Bottle) SL PRN (09:40)
[2018-08-09] MEDS ORDERED: Acetaminophen/Codeine 30-300mg Tablet PO PRN ×2 (09:40)
[2018-08-09] MEDS ORDERED: traMADol HCl 50 MG TAB PO PRN (09:40)
[2018-08-09] MEDS ORDERED: Sodium Chloride 0.9% 200 ML IV PRN (09:45)
[2018-08-09] MEDS: cloNIDine 0.1 MG TAB PO PRN ×2 (12:32→15:58)
[2018-08-09] MEDS ORDERED: Iopamidol 370 76% 50 ML VIAL FS ONE (15:26)
[2018-08-09] MEDS ORDERED: Iopamidol 370 76% 100 ML VIAL ONE (15:26)
--- NOTE | 2018-08-09 17:18 | CON ---
DATE OF CONSULTATION: 08/09/2018 REQUESTING PHYSICIAN: Calryn Lopez M.D. CHIEF COMPLAINT: Shortness of breath and chest pain. HISTORY OF PRESENT ILLNESS: The patient is a 72-year-old man who in the mid underwent emergent coronary artery bypass grafting x1 utilizing vein from his left lower leg to bypass the cir cumflex vessel after a failed PCI that he described as the vessel rupturing. He describes doing reas onably well until about 2006 when he had a "light heart attack." That same year, he said he had a st roke. He recently began developing shortness of breath and some chest pain, initially preferring to not pursue evaluation, but over the weekend, he was admitted with a second or third bout of pain in a short period of time. He did not have any associated acute EKG changes, but he did have a rise and fall in his troponin consistent with a non-ST elevation myocardial infarction. Cardiac catheterizati on today shows anastomotic strictures proximally and distally involving the vein graft with the nativ e vessel being occluded. He has more modest disease in his LAD and right coronary systems. His infe rior wall was akinetic. LVEF is around 40% with an EDP of 17. PAST MEDICAL HISTORY: Significant for cirrhosis, hepatitis C, diabetes, hypertension, cerebrovascula r disease and coronary disease. HOME MEDICATIONS: Zocor, omeprazole, lisinopril, lactulose, insulin, Lasix, finasteride, Coreg, baby aspirin, Norvasc and Xanax. SOCIAL HISTORY: He says that he quit smoking in the after having smoked for 20 or 30 years. T he patient admits to previous alcohol abuse and illicit drug use. FAMILY HISTORY: Significant for coronary disease in both parents and he has a brother with heart david lure. REVIEW OF SYSTEMS: Positive for GI blood loss. PHYSICAL EXAMINATION: GENERAL: He is in no distress. VITAL SIGNS: Height is 5 feet 6 inches, weight is pounds. He has no xanthelasma. HEENT: No scleral icterus. NECK: No JVD, no carotid bruits. CHEST: Clear to auscultation. CARDIOVASCULAR: He has a regular rate and rhythm. ABDOMEN: Protuberant with perhaps a small modest fluid wave, not able to appreciate his liver edge, but I do think I could appreciate spleen tip on deep inspiration. There is no caput medusae or umbil ical hernia. EXTREMITIES: He has palpable radial and posterior tibial pulses bilaterally. He has well-healed jaylen gical scars on his chest and left lower leg from his coronary bypass procedure. He has no clubbing, cyanosis or edema. I was not able to clearly palpate dorsalis pedis pulses. NEUROLOGIC: Grossly nonfocal. IMAGING: Chest x-ray showed florid pulmonary edema and sternal wires. LABORATORY DATA: CBC showed a white count of 6.0, hemoglobin 11.5, hematocrit 34.6 and platelet coun t of 91,000. White count is not included in the lab work that he had the evening at admission. That evening, his platelet count was 113,000. His daily CBC subsequently had platelet counts that ranged from 77,000-96,000. He does not have any PTs or INRs. His electrolytes are normal. Glucose 153, B UN 36, creatinine 1.71, bilirubin 0.9, alkaline phosphatase 133, AST 138, ALT 146, protein 7.2, album in 2.9, calcium 8.4. His initial troponin was 0.998. It peaked early in the morning on the 6th at 1 .439. His creatinine has ranged from 1.45 as the low this morning. Peak was 2.32 a couple of days i nto his hospitalization. His cardiac catheterization today shows a right dominant system with diffus e irregularity in his right coronary system, luminal irregularity in his mid LAD with maximum stenosi s by my measurements in the 40%-50% range. He has an occluded circumflex system with a subtotal osti al stenosis in the proximal anastomosis of the vein graft to the circumflex vessel and a high grade p dyan-anastomotic stricture in what appears to be either a small or underfilled obtuse marginal. It is a large area of inferior and perhaps inferior lateral akinesis with an LVEF of around 40%. IMPRESSION AND RECOMMENDATIONS: His circumflex system is by far his problematic vessel and I can see how PCI would be fraught with difficulty and risk; however, his liver disease probably makes redo co ronary bypass surgery prohibitively risky and I would opt for medical management if at all feasible. If not, would consider transfer to a major medical center with greater depths of resources with resp ect to blood banking.
[2018-08-09] MEDS: Simvastatin 20 MG TAB PO SCH (20:32)
[2018-08-10 05:36] LABS: Anion Gap 11 mmol/L (10-20); BUN (Urea Nitrogen) 27 mg/dL (8.4-25.7); Calc. Creatinine Clearance 60 mL/min (70-130); Calcium 8.7 mg/dL (7.8-10.44); Carbon Dioxide 23 mmol/L (23-31); Chloride 111 mmol/L (98-107); Estimated GFR-MDRD 54; Glucose 98 mg/dL (83-110); Potassium 4.2 mmol/L (3.5-5.1); Sodium 141 mmol/L (136-145)
[2018-08-10 05:51] LABS: INR-International Normal Ratio 1.1; PTT 30.1 SEC (22.9-36.1); Prothrombin Time 13.8 SEC (12.0-14.7)
--- NOTE | 2018-08-10 05:58 | PDOC.FM ---
- Objective Vital Signs & Weight: Vital Signs (12 hours) Temp Pulse Resp BP BP Pulse Ox 08/10/18 04:00 98.3 F 62 12 166/76 H 93 L 08/09/18 20:31 62 179/81 H 08/09/18 20:00 97.7 F 62 18 179/81 H 98 08/09/18 19:35 97.7 F 62 18 96 Weight Weight 83.506 kg I&O: 08/08/18 08/09/18 08/10/18 06:59 06:59 06:59 Intake Total 1237 1530 1680 Output Total 2520 2150 1050 Balance -1283 -905 630 Result Diagrams: 08/09/18 04:40 08/10/18 04:35 Dx/Plan (1) Acute bronchitis Code(s): J20.9 - ACUTE BRONCHITIS, UNSPECIFIED Status: Acute (2) Acute kidney injury superimposed on chronic kidney disease Code(s): N17.9 - ACUTE KIDNEY FAILURE, UNSPECIFIED; N18.9 - CHRONIC KIDNEY DISEASE, UNSPECIFIED Status: Acute (3) Acute on chronic diastolic CHF (congestive heart failure) Code(s): I50.33 - ACUTE ON CHRONIC DIASTOLIC (CONGESTIVE) HEART FAILURE Status : Acute (4) Diabetes mellitus, type II Status: Chronic (5) CAD (coronary artery disease) Code(s): I25.10 - ATHSCL HEART DISEASE OF [place] CORONARY ARTERY W/O ANG PCTRS Status: Chronic (6) NSTEMI (non-ST elevated myocardial infarction) Code(s): I21.4 - NON-ST ELEVATION (NSTEMI) MYOCARDIAL INFARCTION Status: Acute (7) Cirrhosis of liver Code(s): K74.60 - UNSPECIFIED CIRRHOSIS OF LIVER Status: Chronic (8) Hepatitis C Code(s): B19.20 - UNSPECIFIED VIRAL HEPATITIS C WITHOUT HEPATIC COMA Status: Chronic - Plan Plan: Plan: This is a 72 yo male with PMH of CAD sp CABG 1985, stent in 2006, HTN, DMII s/p cardiac cath on 08/09/18. NSTEMI, resolved -CXR: pulmonary edema and sternal wires -Echo shows EF 40-45%, left atrial dilatation. -Cards Dr. Lopez consulted, appreciate recommendations -Cardiac cath 08/09/18: Diffuse irregularity in right coronary system, luminal irregularity in mid LAD (max stenosis 40-50%). Occluded circumflex system, with subtotal ostial stenosis of the vein graft to circumflex vessel, high grade stricture in either the small or obtuse marginal. Inferior/Inferior lateral akinesis with LVEF around 40%. CVS Dr. Lazo recommends medical management if at all feasible, because of risk of PCI as well as redo of coronary bypass surgery (due to patient's other comorbidities). Otherwise recommends transfer to [facility] for coronary bypass. - Lasix 20mg. -D/C lovenox due to kidney disease -Nitro PRN -ASA 81 mg QD -Tramadol, acetaminophen for pain Acute on chronic HFpEF -Echo results as above, fluid restriction 1500, on lasix -Pt. down .6 Kg from yesterday TERRENCE on CKD -BUN 36 (51) and Creatinine 1.45 (1.55). Lisinopril has been DC; low dose of lasix per cards. Acute hypoxic respiratory failure -Improving. Now on RA. Duonebs PRN DM type 2 -Insulin NPH 28 units BID -Blood sugar range is broad. Fasting sugar appears closer to normal. Continue accuchecks. A1C 04/2018 6.1 Thrombocytopenia, stable -Ranging 81-99, we will continue to monitor, lovenox held, we will do SCDs for DVT prophylaxis PVD Atrial Doppler study in 02/2018 showed mild-mod stenosis in Bilat Popliteal arteries. Pulmonary HTN -Confirmed by Echo -Consult Pulmonology, Dr. Beckett,appreciate recs HTN -Amlodipine 5 mg, Isosobride mono 60 mg QD, Carvedilol 3.125 mg PO QD HLD -Continue home meds Cirrhosis -Aware, history of Hep C Code: Full Prophylaxis: SCDs, protonix Family: none at bedside
[2018-08-10] MEDS: Amlodipine 5 MG TAB PO SCH (10:37)
[2018-08-10] MEDS: Finasteride 5 MG TAB PO SCH (10:41)
[2018-08-10] MEDS: Carvedilol 3.125 MG TAB PO SCH (10:41)
[2018-08-10] MEDS: ALPRAZolam 0.25 MG TAB PO SCH (10:42)
[2018-08-10] MEDS: Insulin NPH/Reg Insulin Hm 300 UNITS/3 ML VIAL SC SCH ×2 (11:00→11:22)
[2018-08-10] MEDS: HumaLOG 300 UNITS/3 ML VIAL SC PRN (11:22)
[2018-08-10] MEDS ORDERED: Clopidogrel Bisulfate 300 MG TAB PO SCH (11:45)
[2018-08-10] MEDS ORDERED: Carvedilol 3.125 MG TAB PO SCH ×2 (12:30→21:00)
--- NOTE | 2018-08-10 13:00 | PRG ---
DATE OF SERVICE: 08/10/2018 For full progress note details, please see the written progress notes done by Dr. Rosina Stewart this morn ing. In brief, this patient is a 72-year-old gentleman with history of heart failure with preserved ejecti on fraction, last EF 40-45% documented in 07/2018 He also has a history of coronary artery disease s tatus post multivessel CABG. The patient was recently admitted here with chest pain and shortness of breath and was found to possibly be having a non-ST segment elevation NE. The patient was evaluated by the muffler tender who decided to do a heart catheterization yesterday which did show multivessel d isease and there was discussion about possible need for repeat coronary bypass surgery. However, Car diovascular Surgery has deferred on repeat surgery in this patient and has opted for medication manag ement. The patient is overall optimally medical managed in regards to his prescriptions. We have sp oken with Cardiology today and they are on board with discharging the patient today. Vitals at this time include temperature 96.8, heart rate 57, blood pressure 154/72, respirations 16, pulse ox 98% on room air. Therefore, he is doing fine and is stable for discharge at this time with further outpati ent follow up with his muffler tender.
--- NOTE | 2018-08-10 13:11 | PRG ---
DATE OF SERVICE: 08/10/2018 SUBJECTIVE: Mr. Prather is . He has no complaints. OBJECTIVE: VITAL SIGNS: Blood pressure is not yet recorded as the computer system is down. Pulse is normal, __ ___. LUNGS: Clear. CARDIAC: Normal S1, normal S2. ABDOMEN: Soft, nontender. EXTREMITIES: No edema. ASSESSMENT: 1. Congestive heart failure, systolic ejection fraction 40%. 2. Previous bypass surgery. 3. Three-vessel coronary artery disease, not a candidate for surgery per Dr. Lazo as he is at prohibitive risk due to liver disease as well as redo status. PLAN: Can be released home. We will need to review medicines prior to discharge. Currently, the [employer] system is down. Long-term prognosis is guarded. I think the risk of intervention on the saph enous vein graft, which is likely 30 years old, outweighs the potential benefits. Critical ostial le kay would be at high risk of restenosis and also evident lesion at the anastomosis distally into a r elatively small distribution. The risk of intervention would be outweighed the benefit of getting a durable good outcome with percutaneous therapy and likely low risk of complication in the short term is high.
[2018-08-10 13:28] VITALS: BP 154/72; TEMP 96.8
[2018-08-10] MEDS ORDERED: Atorvastatin Calcium 20 MG TAB PO SCH (21:00)
[2018-08-11] MEDS ORDERED: Lisinopril 5 MG TAB PO SCH (09:00)
[2018-08-11] MEDS ORDERED: Furosemide 20 MG TAB PO SCH (09:00)
--- NOTE | 2018-08-11 15:06 | DIS-2 ---
DATE OF ADMISSION: 08/04/2018 DATE OF DISCHARGE: 08/10/2018 RESIDENT: Dr. Rosina Stewart ADMISSION ATTENDING: Dr. Meg Isaacs DISCHARGE ATTENDING: Dr. Matheus Vee CONSULTS: 1. Cardiology, Dr. Lopez 2. Cardiovascular Surgery, Dr. Lazo 3. Pulmonology, Dr. Beckett PROCEDURES: 1. clinical lab technologist procedure on 08/09/2018 showed 3-vessel coronary artery disease, had 1 patent grafts to OM1, diffusely diseased graft with 90% ostial lesion, 90 % anastomosis lesion, left ventricular ejection fraction 40%, consider CABG. Recheck renal function. 2. Echocardiogram on 08/06/2018 showed a left ventricular ejection fraction estimated to be 40-45%, normal right ventricular size and function. Inferior akinesis, left atrium severely dilated, normal right atrium size. Mild mitral regurg is present. Structurally normal aortic valve with no significant stenosis or regurgitation. Moderate tricuspid regurgitation. Moderately elevated pulmonary artery pressure. No evidence of any pericardial effusion. PRIMARY DIAGNOSES: 1. Saq-HO-znyihco elevation myocardial infarction. 2. 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 DISCHARGE MEDICATIONS: Aspirin 81 mg oral daily, atorvastatin 20 mg oral at bedtime, carvedilol 6.25 mg oral twice daily, clopidogrel 75 mg oral daily, furosemide 20 mg oral daily, isosorbide mononitrate 60 mg oral daily, lisinopril 5 mg oral daily, nitroglycerin 0.4 mg sublingual every 5 minutes p.r.n. for chest pain, alprazolam 0.25 mg oral twice daily, insulin Humulin 70/ 30 28 units twice daily before meals, omeprazole 20 mg oral daily, finasteride 5 mg oral daily, amlodipine 10 mg oral daily, lactulose 10 mg oral daily. DISCONTINUED MEDICATIONS: Furosemide 40 mg oral twice daily, simvastatin 20 mg oral at bedtime, carvedilol 3.125 mg oral twice daily, lisinopril 10 mg oral daily, Solu-Medrol, prednisone and heparin. HISTORY OF PRESENT ILLNESS AND HOSPITAL COURSE: A 72-year-old male with history of coronary artery disease status post CABG 1985 with history of stent in 2006, type 2 diabetes mellitus, hypertension who presented with chest pain and shortness of breath. The patient stated he had 1 day history of chest pain located in the center of the chest. It was described as dull with no radiation. The chest pain was constant and associated with shortness of breath. The patient stated that this current episode of chest pain started with shortness of breath. He was exceptionally short of breath on exertion. He endorses palpitations. The chest pain started around 14 that day and was relieved by nitro, aspirin, and Lasix. He was transferred from [facility] for CHF exacerbation and workup of his chest pain. He is not followed by a material requirements planning manager, but did present to the hospital in 02/2018. At that time, he was seen by Dr. Lopez. He had an echocardiogram done at that time, which showed ejection fraction 50-55% with posterior wall akinesis, inferior wall and lateral wall hypokinesis, and pulmonary artery systolic pressures of [address] Lopez commented that the patient would likely need cardiac catheterization , but the patient declined at that time. Nitrates were added to assist with chest pain. The patient does have a history of GI bleeding, so he was taken off aspirin and Plavix in the past, but was restarted during last hospitalization. The patient does endorse history of smoking, but quit in 2001. In the ED pt required O2. He was satting 90s on 2 liters. He did not require O2 at home. In the ED, the patient was given 40 mg of IV Lasix. He was transferred from [facility] and had received aspirin, Lasix, and nitro. An echocardiogram was repeated which showed the results as mentioned above in his procedures. The patient was given Lasix, Lovenox was discontinued due to his kidney disease , acute on chronic HFpEF. Echo results as above. He was fluid restricted on Lasix. Acute kidney injury on chronic kidney disease, he had a BUN that was high but decreased to 36, and creatinine on discharge was 1.45. Lisinopril was discontinued because of his kidney disease while he was inpatient. He was still on the low dose of Lasix per Cardiology. For his acute hypoxic respiratory failure, it improved. He was on DuoNeb and improved to room air. For his type 2 diabetes mellitus, he had an A1c 04/2018 of 6.1, blood sugars were monitored and controlled during his stay with home regimen and SSI. His thrombocytopenia was stable, stayed in the 80s-90s. He had SCDs for DVT prophylaxis. He has peripheral vascular disease, atrial Doppler study on 2017 showed mild to moderate stenosis in the bilateral popliteal arteries. Pulmonary hypertension that was confirmed by echo. Later he also received a cath with the report reported as stated above. It was recommended by cards that the patient go home on medical management for his coronary artery disease because of his high risk history and comorbidities. The patient was discharged in stable condition. DISPOSITION: Stable. DISCHARGE INSTRUCTIONS: 1. Activity: Cardiopulmonary limits. 2. Diet: Diabetic diet, heart healthy. 3. Location: Home. 4. Followup: Follow up with Dr. Lopez in 2 weeks and follow up with PCP in the next 3 days. SUSHANT
[2018-08-12] MEDS ORDERED: Clopidogrel Bisulfate 75 MG TAB PO SCH (09:00)
== END 2018-08-10 15:11 | disposition home or self-care (01) | DRG 280 ==
LOC: ERS 14:30 → 2NO 17:43 → IMCU/EMU 22:47 → 2NO 08-06 21:04
PROVIDERS: ADMIT Family Medicine; ATTEND Family Medicine
PROC: 4A023N7 Measurement of Cardiac Sampling and Pressure, Left Heart, Percutaneous Approach (ICD-10-PCS; principal; 2018-08-09)
PROC: B2131ZZ Fluoroscopy of Multiple Coronary Artery Bypass Grafts using Low Osmolar Contrast (ICD-10-PCS; 2018-08-09)
PROC: B2111ZZ Fluoroscopy of Multiple Coronary Arteries using Low Osmolar Contrast (ICD-10-PCS; 2018-08-09)
PROC: B2151ZZ Fluoroscopy of Left Heart using Low Osmolar Contrast (ICD-10-PCS; 2018-08-09)
DX: I21.4 Non-ST elevation (NSTEMI) myocardial infarction (principal); I50.33 Acute on chronic diastolic (congestive) heart failure; J96.01 Acute respiratory failure with hypoxia; N17.0 Acute kidney failure with tubular necrosis; I13.0 Hypertensive heart and chronic kidney disease with heart failure and stage 1 through stage 4 chronic kidney disease, or unspecified chronic kidney disease; D61.818 Other pancytopenia; I24.9 Acute ischemic heart disease, unspecified; I07.1 Rheumatic tricuspid insufficiency; J20.9 Acute bronchitis, unspecified; I25.10 Atherosclerotic heart disease of native coronary artery without angina pectoris; Z95.1 Presence of aortocoronary bypass graft; K70.30 Alcoholic cirrhosis of liver without ascites; B19.20 Unspecified viral hepatitis C without hepatic coma; R79.89 Other specified abnormal findings of blood chemistry; D69.6 Thrombocytopenia, unspecified; E11.22 Type 2 diabetes mellitus with diabetic chronic kidney disease; N18.3 Chronic kidney disease, stage 3 (moderate); E78.5 Hyperlipidemia, unspecified; Z79.82 Long term (current) use of aspirin; Z79.4 Long term (current) use of insulin; Z98.61 Coronary angioplasty status; Z79.02 Long term (current) use of antithrombotics/antiplatelets; I73.9 Peripheral vascular disease, unspecified; I27.20 Pulmonary hypertension, unspecified; Z87.891 Personal history of nicotine dependence; F10.11 Alcohol abuse, in remission; F41.9 Anxiety disorder, unspecified; K21.9 Gastro-esophageal reflux disease without esophagitis; Z90.49 Acquired absence of other specified parts of digestive tract; D64.9 Anemia, unspecified; K76.9 Liver disease, unspecified
CPT/HCPCS: 36415; 36416; 76942; 80048; 80053; 80306; 84443; 84484; 85025; 85610; 85730; 93005; 93306; 93459; 93567; 93798; 94640; 94760; 96374; A4216; C1769; G8978-GP-CH; G8979-GP-CH; G8980-GP-CH; J1644; J1650; J1940; J2250; J2920; J3010; J7506; J7620

== ENCOUNTER 2018-09-30 17:12 | Emergency (ER) | payer MEDICARE, MEDICAID ==
[2018-09-30] MEDS ORDERED: Albuterol Sulfate 2.5 mg/0.5 ml Neb ONE (17:50)
== END 2018-09-30 19:58 | disposition home or self-care (01) ==
LOC: ERS 17:12
DX: I11.0 Hypertensive heart disease with heart failure (principal); I50.9 Heart failure, unspecified; K74.60 Unspecified cirrhosis of liver; I25.2 Old myocardial infarction; E11.9 Type 2 diabetes mellitus without complications; K21.9 Gastro-esophageal reflux disease without esophagitis; E78.5 Hyperlipidemia, unspecified; F41.9 Anxiety disorder, unspecified; F32.9 Major depressive disorder, single episode, unspecified; Z86.73 Personal history of transient ischemic attack (TIA), and cerebral infarction without residual deficits; Z87.891 Personal history of nicotine dependence; Z79.82 Long term (current) use of aspirin; Z79.4 Long term (current) use of insulin; Z79.899 Other long term (current) drug therapy
CPT/HCPCS: 36415; 94640; J7611

== ENCOUNTER 2019-12-04 13:12 | Observation (INO) | payer MEDICARE, MEDICAID ==
--- NOTE | 2019-12-04 14:40 | PDOC.FPRHP ---
- History of Present Illness Chief Complaint: Chest Pain History of Present Illness: Patient is a 73 yo male who presents as a transfer from [facility] for chest pain which has been on/off for past 3 days. He describes the pain as chest tightness & pressure over the left side of his chest with no radiation. Has had similar chest pain in the past, most recently in 2018 and was found to have an NSTEMI at that time. In addition to the chest pain, patient feels bloated, nauseous, has palpitations, and said he hasn't been able to sleep much the last 3 days. He does not complain of swelling but at the same time says he has noticed some swelling in his legs that is "not as bad as before". Denies any orthopnea or PND, headache, dizziness, syncope, SOB, cough, congestion, myalgia. Patient was given nitro patch in [facility] and says his chest pain was relieved shortly after. He has no current complaints upon examination in our ED. Patient states that his PCP, Dr. Donato recently stopped his Lasix and started him on Plavix. Also says he follows with Dr. Carr at [facility] for Cardiology. Pt had a cath performed approx 8 months ago which showed multivessel disease and opted for medical management only at that time. - Allergies/Adverse Reactions Allergies Allergy/AdvReac Type Severity Reaction Status Date / Time No Known Allergies Allergy Verified 12/04/19 15:50 - Home Medications Medication Instructions Recorded Confirmed Type ALPRAZolam [Xanax] 0.25 mg PO BID 01/15/14 12/04/19 History HumuLIN 70/30 [HumuLIN 70/30 Vial] 31 unit SC BID-WM 01/15/14 12/04/19 History Amlodipine [Norvasc] 10 mg PO DAILY 03/01/18 12/04/19 History Finasteride 5 mg PO DAILY 03/01/18 12/04/19 History Lactulose [Constulose] 10 gm PO DAILY 03/01/18 12/04/19 History Omeprazole 20 mg PO HS 03/01/18 12/04/19 History Clopidogrel Bisulfate [Plavix] 75 mg PO DAILY #21 tab 08/10/18 12/04/19 Rx Isosorbide Mononitrate [Imdur] 60 mg PO DAILY #21 tab 08/10/18 12/04/19 Rx Lisinopril [Zestril] 5 mg PO DAILY #21 tab 08/10/18 12/04/19 Rx Nitroglycerin [Nitrostat] 0.4 mg SL Q5MIN PRN #14 tab 08/10/18 12/04/19 Rx Allopurinol 300 mg PO DAILY 12/04/19 12/04/19 History Ferrous Sulfate 325 mg PO DAILY 12/04/19 12/04/19 History Furosemide [Lasix] 40 mg PO QPM 12/04/19 12/04/19 History Metoprolol Tartrate 50 mg PO BID-WM 12/04/19 12/04/19 History Simvastatin 20 mg PO HS 12/04/19 12/04/19 History Comments: home meds above are not confirmed, pending official med rec Per patient his home Lasix was recently stopped and started on Plavix - History PMHx: HFrEF (last Echo EF 40% in 2018), CAD, 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 denies: paroxysmal nocturnal dyspnea, orthopnea Gastrointestinal: reports: nausea. denies: vomiting, diarrhea, constipation, abdominal pain Genitourinary: denies: incontinence, dysuria Skin: denies: rashes, lesions Musculoskeletal: reports: swelling. denies: pain, tenderness Neurological: denies: numbness, weakness - Vital signs BP: 138/70 HR: 60 RR: 16 Tmax: 97.8F Pox: 100% on RA Wt: 80 kg - Physical Exam Constitutional: NAD, awake, alert and oriented, well developed HEENT: normocephalic and atraumatic, EOMI, conjunctiva clear, no scleral icterus , grossly normal vision, grossly normal hearing, MMM Neck: supple, no JVD Chest: no-tender to palpation, no lesions Heart: RRR, normal S1/S2, no murmurs/rubs/gallops, pulses present -Heart: 1+ pitting edema in bilateral lower extremities Lungs: CTAB, no respiratory distress, good air movement, no rales/rhonchi, no wheezing Abdomen: soft, non-tender, bowel sounds present, no masses/distention Musculoskeletal: normal structure, normal tone Neurological: normal sensation -Neurological: strength 4/5 on left, 5/5 on right Skin: no rash/lesions, good turgor Heme/Lymphatic: no unusual bruising or bleeding Psychiatric: normal mood and affect, intact recent and remote memory FMR H&P: Results - Labs Lab results: Labs from [facility] Glucose 46, WBC 3.5, Hgb 10.9, Hct 34.9, Plt 87, K 3.3, BUN 22, Cr 1.43 Last BNP on 11/16/19 is 1027 - EKG Interpretation EKG: no ST changes or T wave changes FMR H&P: A/P - Problem List (1) CHF (congestive heart failure) Current Visit: No Status: Acute Code(s): I50.9 - HEART FAILURE, UNSPECIFIED (2) Hypokalemia Current Visit: No Status: Acute Code(s): E87.6 - HYPOKALEMIA (3) Unstable angina Current Visit: No Status: Acute (4) CAD (coronary artery disease) Current Visit: No Status: Chronic Code(s): I25.10 - ATHSCL HEART DISEASE OF [place] CORONARY ARTERY W/O ANG PCTRS (5) Diabetes mellitus, type II Current Visit: No Status: Chronic (6) HLD (hyperlipidemia) Current Visit: No Status: Chronic Code(s): E78.5 - HYPERLIPIDEMIA, UNSPECIFIED - Plan Patient is a 73 yo male with complaint of Chest pain is admitted for ACS r/o and further monitoring: #Chest pain with indeterminate troponin - initial troponin 0.044, will trend - EKG vpaced without ST changes - nitro/ekg prn for repeat chest pain, pt declined asa - request records from Dr. Carr @ [facility] - medical mgmt. has been recommended in the past by cards/cv surg #HFrEF exacerbation - ECHO in 2018 revealed EF of 40%, will repeat ECHO with this admission - last BNP 1027 on 11/16/19 - give 1 time 20 mg IV Lasix - check BNP - call PCP, Dr. Donato in AM to confirm home meds and if taking Lasix #IDDM - continue home meds, pt states takes Humalin 31 units in AM, 31 units in PM, does not currently take insulin with meals - ACHS accuchecks mild sliding scale #Cirrhosis - elevated liver enzymes: AST 124, ALT 91, Alk Phos 134, Hep C positive - low WBC today, contact Dr. Donato in AM for prior workup -consider checking Hep B, Hep C, HIV, RPR if not already performed by PCP #Pancytopenia -WBC 3.5, Hgb 10.9, Plt 87 #Hypokalemia -K 3.3. on admission -give 1 time 40 meq KCl PO #Hypoglycemia -likely 2/2 decreased PO intake -glucose 46 on admission -Accuchecks ACHS #HTN -continue home meds #HLD -continue home meds #Hx of CVA -persistent left sided deficits -continue home meds including Plavix #Hx of CAD s/p CABG -continue home meds Diet: Heart Healthy VTE: Lovenox 40, SCDs, Code status: FULL Dispo: Admitted to observation on telemetry unit. Will obtain ECHO and trend troponin. Check BNP. Anticipate LOS <48 hrs. FMR H&P: Upper Level - Plan Date/Time: 12/04/19 1439 ITrey DO, have evaluated this patient and agree with findings/plan as outlined by campus recruiting internship resident. Pertinent changes/additions are listed here. HPI Mr. Prather is a 73 y/o male with extensive cardiac hx who presents to outside ED for substernal pressure for 3 days. He was given nitro which improved the pain. He reports the pain is not similar to when he had his CABG in the past. He was evaluated this year with cardiac catheterization in July which revealed severe multi-vessel disease. At that time it was determined pt would be best managed with medications. Follows up with Dr. Dempsey. PE General: NAD HEENT: NCAT Chest: even inspiratory and expiratory effort, no retractions Abdomen: non distended, NTTP MSK: no weakness, or loss of ROM noted Extremities: non-edematous, pulses present Neuro: grossly intact, no focal deficits See campus recruiting internship portion for full ROS, PE, labs and vitals. A/P Chest pain with indeterminate troponin - typical with indeterminate trops in a pt with significant CAD, EKG vpaced without ST changes - trend trops, nitro/ekg for repeat chest pain, pt declined asa - request records from Dr. Carr - medical mgmt. has been recommended in the past by cards/cv surg HFrEF exacerbation - echo over in 2018 revealed EF of 40% - recently decreased Lasix dose - diurse with IV Lasix, bnp pending IDDM - continue home meds - ACHS accuchecks mild sliding scale Cirrhosis - elevated liver enzymes, Hep C positive - low WBC today, contact Dr. Donato in AM for prior workup See campus recruiting internship note for chronic illness mgmt. Dispo: admit to tele obs for further monitoring/diuresis
[2019-12-04] MEDS ORDERED: Senokot S 8.6-50 MG TAB PO PRN (15:38)
[2019-12-04] MEDS ORDERED: Ondansetron ODT 4 MG TAB PO PRN (15:38)
[2019-12-04] MEDS ORDERED: Dextrose 5% in Water 1,000 ML IV PRN (15:38)
[2019-12-04] MEDS ORDERED: Furosemide 20 MG/2 ML VIAL SLOW IVP SCH (15:38)
[2019-12-04] MEDS ORDERED: Nitroglycerin 0.4 MG TAB (25 Tab Bottle) PO PRN (15:38)
[2019-12-04] MEDS ORDERED: Calcium Carbonate 500 MG ChewTAB PO PRN (15:38)
[2019-12-04] MEDS ORDERED: Dextrose 50% Abboject 50 ML SYRINGE SLOW IVP PRN (15:38)
[2019-12-04] MEDS ORDERED: Potassium Chloride 20 MEQ TAB PO SCH (15:38)
[2019-12-04] MEDS ORDERED: Acetaminophen 325 MG TAB PO PRN (15:38)
[2019-12-04] MEDS ORDERED: Ondansetron PF 4 MG/2 ML Vial IVP PRN (15:38)
[2019-12-04] MEDS ORDERED: Insulin Regular 300 UNITS/3 ML VIAL SC PRN (15:38)
[2019-12-04 15:45] VITALS: BMI 30.4
[2019-12-04 15:48] LABS: Troponin I 0.023 ng/mL (< 0.028)
--- NOTE | 2019-12-04 16:06 | HP ---
I have discussed the case with and agree with her assessment and plan. CHIEF COMPLAINT: Chest pain. HISTORY OF PRESENT ILLNESS: Mr. Prather is a very pleasant 73-year-old man who had a CABG in 1985. He has had 3 days of retrosternal chest heaviness and pressure, which is unassociated with exercise or movement. He states the pain "comes and goes and has no particular inciting factors. He is not short of breath. He has had no nausea or diaphoresis. He has a pacemaker in place, so EKG does not show any ST-segment changes. His initial troponin was negative. PHYSICAL EXAMINATION: VITAL SIGNS: Blood pressure is 140/60. His pulse rate is 60 and regular, respirations 18. He is afebrile and his room air pulse ox is 98. GENERAL: He is pleasant awake, alert, in no distress. EAR, NOSE, AND THROAT: No erythema or exudate. NECK: Supple. CARDIAC: Heart rhythm is regular. Heart sounds distant, S4 gallop. No murmur or rub noted. LUNGS: Clear, but diminished. No rales or wheezes. No respiratory distress. No use of accessory muscles. ABDOMEN: Flat and soft without guarding, rebound, or rigidity. EXTREMITIES: Trace edema. NEUROLOGIC: No focal deficits. LABORATORY DATA: Not currently available. Initial trop was negative. ASSESSMENT: Atypical chest pain in a patient with known coronary artery disease. COMMENT: Mr. Prather had a cath per his [facility] 8 months ago. He was told at that time he had diffuse disease, but elected to treat this medically. He under no circumstances wants any more cardiac surgery. We will admit him and trend his troponins. Should any troponin elevations occur or should he develop any complications, we will consult Cardiology. Job ID: [id number]
[2019-12-04] MEDS ORDERED: Nitroglycerin 0.4 MG TAB (25 Tab Bottle) SL PRN (16:57)
[2019-12-04] MEDS: Metoprolol Tartrate 50 MG TAB PO SCH (17:52)
[2019-12-04] MEDS: HumuLIN 70/30 (300 UNITS/3 ML VIAL) SC SCH (17:54)
[2019-12-04] MEDS ORDERED: Insulin Regular 300 UNITS/3 ML VIAL SC SCH (21:00)
[2019-12-04] MEDS: Simvastatin 20 MG TAB PO SCH (21:01)
[2019-12-04] MEDS: Melatonin 3 MG TAB PO PRN (21:01)
[2019-12-04] MEDS: Furosemide 40 MG TAB PO SCH (21:01)
[2019-12-04] MEDS: ALPRAZolam 0.25 MG TAB PO SCH (21:02)
[2019-12-05 04:55] LABS: ALT (SGPT) 69 U/L (8-55); AST (SGOT) 87 U/L (5-34); Albumin 2.7 g/dL (3.4-4.8); Alkaline Phosphatase 118 U/L (40-110); Anion Gap 10 mmol/L (10-20); BUN (Urea Nitrogen) 24 mg/dL (8.4-25.7); Bilirubin, Total 0.6 mg/dL (0.2-1.2); Calc. Creatinine Clearance 48 mL/min (70-130); Calcium 8.1 mg/dL (7.8-10.44); Carbon Dioxide 23 mmol/L (23-31); Chloride 115 mmol/L (98-107); Estimated GFR-MDRD 42; Globulin 3.4 g/dL (2.4-3.5); Glucose 108 mg/dL (83-110); Potassium 3.7 mmol/L (3.5-5.1); Protein, Total 6.1 g/dL (5.8-8.1); Sodium 144 mmol/L (136-145)
[2019-12-05 05:45] LABS: #Eosinphils 0.3 thou/uL (0.0-0.7); #Lymphocytes 0.6 thou/uL (1.20-3.40); #Monocytes 0.3 thou/uL (0.11-0.59); %Eosinophils 14.4 % (0.0-10.0); %Lymphocytes 26.6 % (21.0-51.0); %Monocytes 13.6 % (0.0-10.0); %Neutrophils 44.5 % (42.0-75.0); Anisocytosis SLIGHT = 6-15 cells (100X) (0-5/hpf); Hemoglobin 9.9 g/dL (14.0-18.0); MDiff Complete? YES; Mean Corpuscular Hemoglobin 32.3 pg (27.0-31.0); Mean Platelet Volume 11.6 fL (7.4-10.4); Platelet Count 55 thou/uL (130-400); Platelet Morphology Comment Appears Decreased; Red Blood Cell (RBC) Count 3.05 mill/uL (4.70-6.10); White Blood Cell (WBC) Count 2.2 thou/uL (4.8-10.8)
--- NOTE | 2019-12-05 05:52 | PDOC.FM ---
- Subjective Subjective: Pt states e has the diagnosis of Hep C and cirrhosis. Pt denies CP, SOB. No overnight events. Tele monitoring: AV paced 60's. - Objective MAR Reviewed: Yes Vital Signs & Weight: Vital Signs (12 hours) Temp Pulse Resp BP Pulse Ox 12/05/19 04:06 97.7 F 60 16 133/63 99 12/04/19 23:10 98.1 F 60 13 144/67 H 98 12/04/19 19:05 98.5 F 60 13 147/67 H 97 Weight Weight 83.007 kg I&O: 12/03/19 12/04/19 12/05/19 06:59 06:59 06:59 Intake Total 602 Output Total 925 Balance -323 Result Diagrams: 12/05/19 04:23 12/05/19 04:23 Phys Exam - Physical Examination Constitutional: NAD HEENT: PERRLA, moist MMs Neck: no nodes, supple, full ROM Respiratory: no rales, no rhonchi, clear to auscultation bilateral Cardiovascular: RRR, no significant murmur Gastrointestinal: soft, non-tender, no distention Musculoskeletal: pulses present Neurological: non-focal, moves all 4 limbs Psychiatric: normal affect, A&O x 3 Skin: no rash, cap refill <2 seconds Dx/Plan (1) Acute kidney injury superimposed on chronic kidney disease Code(s): N17.9 - ACUTE KIDNEY FAILURE, UNSPECIFIED; N18.9 - CHRONIC KIDNEY DISEASE, UNSPECIFIED Status: Acute (2) Acute on chronic diastolic CHF (congestive heart failure) Code(s): I50.33 - ACUTE ON CHRONIC DIASTOLIC (CONGESTIVE) HEART FAILURE Status : Acute (3) Anxiety Code(s): F41.9 - ANXIETY DISORDER, UNSPECIFIED Status: Acute (4) CAD (coronary artery disease) Code(s): I25.10 - ATHSCL HEART DISEASE OF [place] CORONARY ARTERY W/O ANG PCTRS Status: Chronic (5) Cirrhosis of liver Code(s): K74.60 - UNSPECIFIED CIRRHOSIS OF LIVER Status: Chronic (6) Diabetes mellitus, type II Status: Chronic (7) HLD (hyperlipidemia) Code(s): E78.5 - HYPERLIPIDEMIA, UNSPECIFIED Status: Chronic (8) HTN (hypertension) Code(s): I10 - ESSENTIAL (PRIMARY) HYPERTENSION Status: Chronic (9) Hepatitis C Code(s): B19.20 - UNSPECIFIED VIRAL HEPATITIS C WITHOUT HEPATIC COMA Status: Chronic - Plan Plan: Patient is a 73 yo male with complaint of Chest pain is admitted for ACS r/o and further monitoring: #Chest pain with indeterminate troponin - initial troponin 0.044, 0.023 - EKG v-paced without ST changes - nitro/ekg prn for repeat chest pain, pt declined asa - request records from Dr. Carr @ [facility] - medical mgmt. has been recommended in the past by cards/cv surg - Echo pending #HFrEF exacerbation - ECHO in 2018 revealed EF of 40%, will repeat ECHO with this admission - last BNP 1027 on 11/16/19 - give 1 time 20 mg IV Lasix - BNP 1375 #IDDM - continue home meds, pt states takes Humalin 31 units in AM, 31 units in PM, does not currently take insulin with meals - ACHS accuchecks mild sliding scale #Cirrhosis - elevated liver enzymes: AST 124, ALT 91, Alk Phos 134, Hep C positive - Hep C hx. #Pancytopenia -WBC 3.5, Hgb 10.9, Plt 87 - Likely 2/2 cirrhosis - Iron, B12, Folate studies pending. #Hypokalemia -K 3.3. on admission -give 1 time 40 meq KCl PO #Hypoglycemia -likely 2/2 decreased PO intake -glucose 46 on admission -Accuchecks ACHS #HTN -continue home meds #HLD -continue home meds #Hx of CVA -persistent left sided deficits -continue home meds including Plavix #Hx of CAD s/p CABG -continue home meds Diet: Heart Healthy VTE: Lovenox 40, SCDs, Code status: FULL Dispo: Admitted to observation on telemetry unit. Anticipate LOS <48 hrs.
[2019-12-05 06:52] LABS: Iron 45 ug/dL (65-175); Iron Binding Capacity, Total 236 mcg/dL (261-462)
[2019-12-05 07:19] LABS: Ferritin 126.26 ng/mL (22-322)
[2019-12-05] MEDS ORDERED: Insulin Regular 300 UNITS/3 ML VIAL SC SCH (07:30)
[2019-12-05] MEDS ORDERED: Ascorbic Acid 500 mg Chewable Tablet PO SCH (09:00)
[2019-12-05] MEDS ORDERED: Ferrous Sulfate 325 MG TAB PO SCH (09:00)
[2019-12-05] MEDS: Metoprolol Tartrate 50 MG TAB PO SCH ×2 (09:21→17:53)
[2019-12-05] MEDS: Clopidogrel Bisulfate 75 MG TAB PO SCH (09:21)
[2019-12-05] MEDS: Lisinopril 5 MG TAB PO SCH (09:21)
[2019-12-05] MEDS: Amlodipine 10 MG TAB PO SCH (09:21)
[2019-12-05] MEDS: Allopurinol 300 MG TAB PO SCH (09:21)
[2019-12-05] MEDS: Finasteride 5 MG TAB PO SCH (09:21)
[2019-12-05] MEDS: ALPRAZolam 0.25 MG TAB PO SCH ×2 (09:21→21:00)
[2019-12-05] MEDS: Enoxaparin Sodium 40 MG/0.4 ML SYRINGE SC SCH (09:22)
[2019-12-05] MEDS ORDERED: Spironolactone 100 MG TAB PO SCH (10:15)
[2019-12-05 10:54] LABS: Syphilis Antibody Nonreactive (Nonreactive); Syphilis Antibody Index 0.05 S/CO (<1.00 Non-Reactive)
--- NOTE | 2019-12-05 11:05 | PRG ---
DATE OF SERVICE: 12/05/2019 Mr. Prather is resting quietly in bed, in no distress. He is having no chest pain. Mr. Prather also has a history of cirrhosis secondary to hepatitis C, for which he has never had treatment. We have discussed with him possible referral to a hep C specialist after this hospitalization, so that he could discuss care and he is interested in this. His anemia studies are consistent with an anemia of chronic disease. As stated, he is not having any further chest pain . He will be discharged to see his nursing teacher around December 15. We will also check him for immunity to hepatitis A and hepatitis B and begin immunization for these if he is not immune already. Again, we will refer him to hep C specialist as per his request to discuss options for treatment of hep C. Job ID: [id number]
[2019-12-05] MEDS: HumuLIN 70/30 (300 UNITS/3 ML VIAL) SC SCH ×2 (11:26→17:53)
[2019-12-05 11:39] LABS: HBSAB Concentration 1.38 mIU/mL; HBSAg Index 0.22 S/CO (0-0.99); HIV (1/2) Antibody/Antigen Non-Reactive (NonReactive); HIV 1/2 INDEX 0.09 S/CO (<1.00); Hep B Surf AB Non-Reactive (NonReactive); Hep B Surf Ag Non-Reactive S/CO (NonReactive)
[2019-12-05 12:33] LABS: Hep B Core Total Ab Reactive (NonReactive); Hep B Core Total Index 12.76 S/CO (0-0.79)
--- NOTE | 2019-12-05 13:40 | ULT ---
GALLBLADDER ULTRASOUND: HISTORY: Right upper quadrant pain. HISTORY: Cirrhosis. FINDINGS: Real-time imaging of the right upper quadrant shows the gallbladder has been removed. The common kal t is 3 mm. The liver shows a heterogeneous echotexture. A subtle nodular surface contour suggests c irrhotic change. There is some moderate ascites noted. The right kidney is not obstructed and shows cortical thinning is within normal limits of size. IMPRESSION: 1. Mild ascites. 2. Cirrhotic-appearing change in the liver. 3. Post cholecystectomy change. POS: GUILLAUME
[2019-12-05] MEDS: Melatonin 3 MG TAB PO PRN (20:59)
[2019-12-05] MEDS: Simvastatin 20 MG TAB PO SCH (20:59)
[2019-12-05] MEDS: Furosemide 40 MG TAB PO SCH (20:59)
[2019-12-06 05:41] LABS: ALT (SGPT) 72 U/L (8-55); AST (SGOT) 95 U/L (5-34); Albumin 2.6 g/dL (3.4-4.8); Alkaline Phosphatase 134 U/L (40-110); Anion Gap 11 mmol/L (10-20); BUN (Urea Nitrogen) 26 mg/dL (8.4-25.7); Bilirubin, Total 0.6 mg/dL (0.2-1.2); Calc. Creatinine Clearance 52 mL/min (70-130); Carbon Dioxide 24 mmol/L (23-31); Chloride 113 mmol/L (98-107); Estimated GFR-MDRD 46; Globulin 3.5 g/dL (2.4-3.5); Potassium 3.6 mmol/L (3.5-5.1); Protein, Total 6.1 g/dL (5.8-8.1); Sodium 144 mmol/L (136-145)
[2019-12-06 05:44] LABS: Band 5 % (5-11); Eosinophils 12 % (0-10); Glucose 48 mg/dL (83-110); Hemoglobin 10.1 g/dL (14.0-18.0); Lymphocytes 19 % (21-51); MDiff Complete? YES; Mean Corpuscular HGB CONC 32.8 g/dL (32.0-36.0); Mean Corpuscular Hemoglobin 32.1 pg (27.0-31.0); Mean Corpuscular Volume 97.6 fL (78.0-98.0); Mean Platelet Volume 12.1 fL (7.4-10.4); Monocytes 7 % (0-10); Neutrophil 57 % (42-75); Platelet Count 57 thou/uL (130-400); Platelet Morphology Comment Appears Decreased; RBC Distribution Width 14.9 % (11.5-14.5); Red Blood Cell (RBC) Count 3.13 mill/uL (4.70-6.10); White Blood Cell (WBC) Count 2.1 thou/uL (4.8-10.8)
--- NOTE | 2019-12-06 06:16 | PDOC.FM ---
- Subjective Subjective: Pt denies CP, SOB. Feeling back to baseline and states he feels ready to go home. No acute overnight events. - Objective MAR Reviewed: Yes Vital Signs & Weight: Vital Signs (12 hours) Temp Pulse Resp BP BP Pulse Ox 12/06/19 04:04 98.1 F 60 16 137/60 95 12/05/19 23:04 98.2 F 60 16 130/61 97 12/05/19 20:00 98.7 F 60 16 136/64 98 Weight Weight 82.599 kg I&O: 12/04/19 12/05/19 12/06/19 06:59 06:59 06:59 Intake Total 602 920 Output Total 925 650 Balance -323 270 Result Diagrams: 12/06/19 04:40 12/06/19 04:40 Phys Exam - Physical Examination Constitutional: NAD HEENT: PERRLA, moist MMs Neck: no JVD, supple, full ROM Respiratory: no wheezing, no rales, no rhonchi, clear to auscultation bilateral Cardiovascular: RRR, no rub Gastrointestinal: soft, non-tender, no distention, positive bowel sounds Musculoskeletal: no edema, pulses present Neurological: non-focal, moves all 4 limbs Psychiatric: normal affect, A&O x 3 Skin: no rash, normal turgor Dx/Plan (1) Acute kidney injury superimposed on chronic kidney disease Code(s): N17.9 - ACUTE KIDNEY FAILURE, UNSPECIFIED; N18.9 - CHRONIC KIDNEY DISEASE, UNSPECIFIED Status: Acute (2) Acute on chronic diastolic CHF (congestive heart failure) Code(s): I50.33 - ACUTE ON CHRONIC DIASTOLIC (CONGESTIVE) HEART FAILURE Status : Acute (3) Anxiety Code(s): F41.9 - ANXIETY DISORDER, UNSPECIFIED Status: Acute (4) CAD (coronary artery disease) Code(s): I25.10 - ATHSCL HEART DISEASE OF [place] CORONARY ARTERY W/O ANG PCTRS Status: Chronic (5) Cirrhosis of liver Code(s): K74.60 - UNSPECIFIED CIRRHOSIS OF LIVER Status: Chronic (6) Diabetes mellitus, type II Status: Chronic (7) HLD (hyperlipidemia) Code(s): E78.5 - HYPERLIPIDEMIA, UNSPECIFIED Status: Chronic (8) HTN (hypertension) Code(s): I10 - ESSENTIAL (PRIMARY) HYPERTENSION Status: Chronic (9) Hepatitis C Code(s): B19.20 - UNSPECIFIED VIRAL HEPATITIS C WITHOUT HEPATIC COMA Status: Chronic - Plan Plan: Patient is a 73 yo male with complaint of Chest pain is admitted for ACS r/o and further monitoring: #Chest pain with indeterminate troponin - initial troponin 0.044, 0.023 - EKG v-paced without ST changes - nitro/ekg prn for repeat chest pain, pt declined asa - request records from Dr. Carr @ [facility] - medical mgmt. has been recommended in the past by cards/cv surg - Echo taken and pending #HFrEF exacerbation - ECHO in 2018 revealed EF of 40%, will repeat ECHO with this admission - last BNP 1027 on 11/16/19 - give 1 time 20 mg IV Lasix - BNP 1375 #IDDM - continue home meds, pt states takes Humalin 31 units in AM, 31 units in PM, does not currently take insulin with meals - ACHS accuchecks mild sliding scale #Cirrhosis - elevated liver enzymes: AST 124, ALT 91, Alk Phos 134, Hep C positive per pt. States he has never had treatment. - Hep C hx. - RPR, HIV negative. Hep B C total AB reactive, HepB S SB and Hep B S AG non- reactive. - Added Spironolactone 100 mg to daily medication regimen. - counseled pt on no use of etoh or liver toxic drugs like Tylenol. #Pancytopenia -WBC 3.5, Hgb 10.9, Plt 87 - Likely 2/2 cirrhosis - Low iron but normal ferritin. D/c'd iron supplementation as pt is not iron deficient. #Hypokalemia, improved -K 3.3. on admission. 3.6 on 12/06. -give 1 time 40 meq KCl PO #Hypoglycemia -likely 2/2 decreased PO intake -glucose 46 on admission -Accuchecks ACHS #HTN -continue home meds #HLD -continue home meds #Hx of CVA -persistent left sided deficits -continue home meds including Plavix #Hx of CAD s/p CABG -continue home meds Diet: Heart Healthy VTE: Lovenox 40, SCDs, Code status: FULL Dispo: Admitted to observation on telemetry unit. Anticipate LOS <48 hrs.
[2019-12-06] MEDS: HumuLIN 70/30 (300 UNITS/3 ML VIAL) SC SCH (07:41)
[2019-12-06] MEDS: Allopurinol 300 MG TAB PO SCH (07:44)
[2019-12-06] MEDS: Enoxaparin Sodium 40 MG/0.4 ML SYRINGE SC SCH (07:44)
[2019-12-06] MEDS: Lisinopril 5 MG TAB PO SCH (07:44)
[2019-12-06] MEDS: Finasteride 5 MG TAB PO SCH (07:45)
[2019-12-06] MEDS: Amlodipine 10 MG TAB PO SCH (07:45)
[2019-12-06] MEDS: Clopidogrel Bisulfate 75 MG TAB PO SCH (07:45)
[2019-12-06] MEDS: Metoprolol Tartrate 50 MG TAB PO SCH (07:45)
[2019-12-06] MEDS: ALPRAZolam 0.25 MG TAB PO SCH (07:46)
[2019-12-06 08:14] VITALS: BP 154/70; TEMP 97.7
[2019-12-06] MEDS ORDERED: Spironolactone 100 MG TAB PO SCH (09:00)
--- NOTE | 2019-12-06 10:59 | PRG ---
DATE OF SERVICE: 12/06/2019 ADDENDUM: This is an addendum to the note of Dr. Prisca Lisa. I have examined Mr. Prather and discussed the case with Dr. Prisca Lisa. I agree with her assessment and plan. Mr. Prather is doing much better this morning. He is ready for discharge. He does have some interesting hepatitis B studies that indicate prior exposure. These need to be followed up with his PCP to see if there is any progression or conversion. 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 Job ID: [id number]
--- NOTE | 2019-12-06 12:18 | DIS ---
DATE OF ADMISSION: 12/04/2019 DATE OF DISCHARGE: 12/06/2019 RESIDENT: Prisca Lisa DO ADMITTING ATTENDING: Alexandro Dunaway MD DISCHARGE ATTENDING: Alexandro Dunaway MD CONSULT: None. PROCEDURES: Echocardiogram read pending on discharge. We will follow up and send report to primary care physician Dr. Donato. Abdominal ultrasound on 2019, which showed mild ascites, cirrhotic appearing change in the liver and post cholecystectomy change. DIAGNOSES: 1. Chest pain with indeterminate troponin. 2. Heart failure, reduced ejection fraction exacerbation. 3. Diabetes mellitus, insulin dependent. 4. Cirrhosis. 5. Pancytopenia. 6. Hyperlipidemia. 7. Hypertension. 8. History of cerebrovascular accident. 9. History of coronary artery disease, status post coronary artery bypass graft. 10. History of hepatitis C without treatment. DISCHARGE MEDICATION: 1. Alprazolam 0.25 mg p.o. b.i.d. 2. Allopurinol 300 mg p.o. daily. 3. Norvasc 10 mg p.o. daily. 4. Plavix 75 mg p.o. daily. 5. Finasteride 5 mg p.o. daily. 6. Lasix 40 mg p.o. q.p.m. 7. Humulin 31 units subcu b.i.d. before meals. 8. Isosorbide mononitrate 60 mg p.o. daily. 9. Lactulose 10 mg p.o. daily. 10. Zestril 5 mg p.o. daily. 11. Metoprolol tartrate 50 mg p.o. b.i.d. 12. Nitrostat 0.4 mg sublingual q.5 minutes p.r.n. for chest pain. 13. Omeprazole 20 mg p.o. at bedtime. 14. Simvastatin 20 mg p.o. at bedtime. 15. Spironolactone 100 mg p.o. daily. This is a new medication. No discontinued medications. HISTORY OF PRESENT ILLNESS/HOSPITAL COURSE: Mr. Prather is a 73-year-old male with a history of heart failure with reduced ejection fraction, who came in presenting clinically in CHF exacerbation and fluid overload. The patient also has a history of hepatitis C without any treatment and is now cirrhotic. The patient was treated with IV Lasix and returned to his euvolemia baseline. The patient was worked up further for his cirrhosis and received hepatitis panel. His hepatitis panel was positive for hepatitis B core total but nonreactive for hepatitis B surface antigen and antibody. This is either a false positive or the beginnings of an acute hepatitis B infection. The patient will need repeat hepatitis panel in the next couple of months to confirm hepatitis B status. The patient is negative for HIV and RPR. The patient's hepatitis C RNA is pending. Per history from the patient, he has tested positive for hepatitis C in the past, but never received any treatment. He would like to look into this and receive treatment for his hepatitis C. The patient had an abdominal ultrasound just to confirm that there were not any new masses in the liver with his hepatitis status and cirrhosis that is leading to increased risk for hepatocellular carcinoma, it not show any mass or discharge, cirrhosis with ascites around the liver. The patient has been evaluated by brake specialist, Dr. Carr at [facility] recently and deemed only medical management to treat his CAD. The patient has an appointment with Dr. Carr on December 15, 2019. Recommend keeping this appointment to discuss further medical management of his coronary artery disease. The patient added to his daily medication regimen with spironolactone 100 mg p.o. daily for treatment of his cirrhosis. It is recommended that he follow up outpatient with a GI or liver doctor. Discussed no use of alcohol or Tylenol with patient as this could even worsen his cirrhosis. Recommending that he continue with Zocor treatment in the setting of his CAD, medical management. DISPOSITION: The patient was stable upon discharge at his euvolemic baseline and eager to return home. DISCHARGE INSTRUCTIONS: 1. Location: Home. 2. Diet: Heart healthy. 3. Activity: As tolerated. 4. Followup with Dr. Carr, brake specialist on 12/15/2019, and Dr. Donato, primary care physician in one week time. Job ID: [id number] [facility]
[2019-12-06 14:09] LABS: Folate,Hemolysate 427.6 ng/mL (Not Estab.); Hematocrit 30.2 % (37.5-51.0); RBC Folate Test Component 1416 ng/mL (>498)
== END 2019-12-06 13:01 | disposition home or self-care (01) ==
LOC: ERS 13:12 → 2SW 15:37
PROVIDERS: ADMIT Family Medicine; ATTEND Family Medicine
DX: I25.110 Atherosclerotic heart disease of native coronary artery with unstable angina pectoris (principal); I11.0 Hypertensive heart disease with heart failure; I50.33 Acute on chronic diastolic (congestive) heart failure; E11.649 Type 2 diabetes mellitus with hypoglycemia without coma; E78.5 Hyperlipidemia, unspecified; E87.6 Hypokalemia; F41.9 Anxiety disorder, unspecified; K74.60 Unspecified cirrhosis of liver; B19.20 Unspecified viral hepatitis C without hepatic coma; D61.818 Other pancytopenia; Z79.4 Long term (current) use of insulin; Z79.899 Other long term (current) drug therapy; Z86.73 Personal history of transient ischemic attack (TIA), and cerebral infarction without residual deficits; Z95.1 Presence of aortocoronary bypass graft
CPT/HCPCS: 76705; 80053 ×2; 82607; 82728; 82747; 82962 ×3; 83540; 83550; 83880; 84484; 85014; 85025 ×2; 86704; 86706; 86708; 86780; 87340; 87389; 87521; 93005; 93306; 96372; 96374; 99285; G0378 ×4; 36415; 36416; J1650; J1815; J1940